=== PATIENT | female | born 1960 | race Caucasian/White ===

== ENCOUNTER 2024-06-03 07:47 | Day surgery (SDC) | payer MEDICARE, OTHER ==
[~2024-06-03] VITALS: Ht 154.9 cm; Wt 90.7 kg
[~2024-06-03 07:47] MED LIST: ATEN50TA2 PO; EZET10TA58 PO; HYDR-3490 PO; LOSA50TA28 PO; METF-838 PO; MIDAZOLAM INJ 2MG/2ML VIAL As Ordered ONE; PHENYLEPHRINE 10% OPHTH SOL 5ML OS PRN; SIMV20TA22 PO; THERTAB52 PO; fentaNYL 100 MCG/2 ML INJECTION As Ordered ONE
[2024-06-03] MEDS: PHENYLEPHRINE 2.5% OPHTH SOL 2ML OS SCH (08:17)
[2024-06-03] MEDS: LIDOCAINE 3.5 % 1ML OPHTH TOPICAL GEL OU ONE (08:17)
[2024-06-03] MEDS: ATROPINE SULFATE 1% OPHTH SOLN 2ML BTL OS SCH (08:17)
[2024-06-03] MEDS: OFLOXACIN 0.3 % (OCUFLOX) OPTH SOL 5ML OS ONE (08:17)
[2024-06-03] MEDS: TROPICAMIDE 1% OPHTH SOLN 15ML OS SCH (08:18)
[2024-06-03] MEDS ORDERED: GLUCOSE 4 GM CHEW PO PRN (08:40)
[2024-06-03] MEDS ORDERED: GLUCAGON INJ 1MG VIAL SC PRN (08:40)
[2024-06-03] MEDS ORDERED: DEXTROSE 50% 50ML SYRINGE IV PRN (08:40)
[2024-06-03] MEDS: LIDOCAINE 1% SDV 5ML VIAL As Ordered ONE (09:27)
[2024-06-03] MEDS: BSS IRRIG/VANCO(10MG)/TOBRA(5MG)/EPINEPH(1:1000-0.5CC)500ML BAG-ORONLY As Ordered ONE (09:27)
[2024-06-03] MEDS: CEFUROXIME 1MG/0.1ML INTRACAMERAL INJ As Ordered ONE (09:27)
[2024-06-03] MEDS: INSULIN LISPRO (NovoLOG) PER UNIT SC PRN ×2 (09:33→10:05)
[2024-06-03 09:40] VITALS: BP 180/83; TEMP 96.5; O2SAT 93
[2024-06-11] MEDS ORDERED: METF10004 PO (12:02)
== END 2024-06-03 10:41 | disposition home or self-care (01) ==
LOC: M SDC 07:47
PROVIDERS: ATTEND Ophthalmology
DX: H25.12 Age-related nuclear cataract, left eye (principal); I10 Essential (primary) hypertension; E78.5 Hyperlipidemia, unspecified; E11.9 Type 2 diabetes mellitus without complications; Z79.899 Other long term (current) drug therapy
CPT/HCPCS: 66984; 92015; J0697; J1815; J2250; J3010; V2632

== ENCOUNTER 2024-06-17 08:24 | Day surgery (SDC) | payer MEDICARE, OTHER ==
[~2024-06-17] VITALS: Ht 154.9 cm; Wt 87.6 kg
[~2024-06-17 08:24] MED LIST changes: +METF10004 PO; -MIDAZOLAM INJ 2MG/2ML VIAL As Ordered ONE; +PHENYLEPHRINE 10% OPHTH SOL 5ML OD PRN; -PHENYLEPHRINE 10% OPHTH SOL 5ML OS PRN
[2024-06-17] MEDS: OFLOXACIN 0.3 % (OCUFLOX) OPTH SOL 5ML OD ONE (08:50)
[2024-06-17] MEDS: PHENYLEPHRINE 2.5% OPHTH SOL 2ML OD SCH (09:02)
[2024-06-17] MEDS: ATROPINE SULFATE 1% OPHTH SOLN 2ML BTL OD SCH (09:02)
[2024-06-17] MEDS: LIDOCAINE 3.5 % 1ML OPHTH TOPICAL GEL OU ONE (09:02)
[2024-06-17] MEDS: TROPICAMIDE 1% OPHTH SOLN 15ML OD SCH (09:02)
[2024-06-17] MEDS: CEFUROXIME 1MG/0.1ML INTRACAMERAL INJ As Ordered ONE (09:26)
[2024-06-17] MEDS: LIDOCAINE 1% SDV 5ML VIAL As Ordered ONE (09:26)
[2024-06-17] MEDS: BSS IRRIG/VANCO(10MG)/TOBRA(5MG)/EPINEPH(1:1000-0.5CC)500ML BAG-ORONLY As Ordered ONE (09:27)
[2024-06-17 09:39] VITALS: BP 181/86; TEMP 96.6; O2SAT 94
== END 2024-06-17 10:08 | disposition home or self-care (01) ==
LOC: M SDC 08:24
PROVIDERS: ATTEND Ophthalmology
DX: H25.11 Age-related nuclear cataract, right eye (principal); I10 Essential (primary) hypertension; E11.9 Type 2 diabetes mellitus without complications; E78.5 Hyperlipidemia, unspecified; J30.2 Other seasonal allergic rhinitis; Z79.84 Long term (current) use of oral hypoglycemic drugs; Z79.899 Other long term (current) drug therapy
CPT/HCPCS: 66984; 92015; J0697; J3010; V2632

== ENCOUNTER 2024-09-02 09:32 | Inpatient (IN) | payer MEDICARE, OTHER ==
[~2024-09-02] VITALS: Ht 157.5 cm; Wt 56.3 kg
[2024-09-02] VITALS (44 sets, daily range): BP systolic 77–142; BP diastolic 38–82; TEMP 95.7–99.1; O2SAT 84–100
[~2024-09-02 09:32] MED LIST changes: -PHENYLEPHRINE 10% OPHTH SOL 5ML OD PRN; -fentaNYL 100 MCG/2 ML INJECTION As Ordered ONE
[2024-09-02] MEDS: NS (Normal Saline) 0.9% 1,000 ML IV ONE ×3 (10:09→12:04)
[2024-09-02 10:15] LABS: VENOUS BASE EXCESS -13.6 (-2.0-2.0); VENOUS HCO3 13.4 MMOL/L (23.0-27.0); VENOUS O2 SATURATION 66.6 % (60.0-80.0); VENOUS PARTIAL PRESSURE CO2 35.1 mmHg (38.0-50.0); VENOUS PARTIAL PRESSURE O2 39.4 mmHg (30.0-50.0); VENOUS PH 7.199 UNITS (7.330-7.430); VENOUS STANDARD HCO3 13.6 MMOL/L; VENOUS TOTAL CO2 14.5 MMOL/L (24.0-28.0)
[2024-09-02 10:27] LABS: BASO % 0.2 % (0.0-1.0); HEMATOCRIT 44.9 % (36.0-47.0); HEMOGLOBIN 14.6 g/dl (12.0-15.5); LYMPH # 0.6 10^3/uL (1.5-5.0); LYMPH % 2.8 % (24.0-44.0); MEAN CORPUSCULAR HEMOGLOBIN 28.2 pg (27.0-33.0); MEAN CORPUSCULAR HGB CONC 32.5 g/dl (32.0-36.5); MEAN CORPUSCULAR VOLUME 86.7 fl (80.0-96.0); MONO # 0.7 10^3/uL (0.0-0.8); MONO % 3.7 % (2.0-8.0); NEUTROPHILS # 18.1 10^3/uL (1.5-8.5); NEUTROPHILS % 92.3 % (36.0-66.0); PLATELET COUNT, AUTOMATED 386 10^3/uL (150-450); RED BLOOD COUNT 5.18 10^6/uL (4.00-5.40); WHITE BLOOD COUNT 19.6 10^3/uL (4.0-10.0)
[2024-09-02 10:46] LABS: ERYTHROCYTE SEDIMENTATION RATE 56 mm/hr (0-30)
[2024-09-02] MEDS: HumuLIN R (REGULAR) INSULIN (NovoLIN R) **100U/ML** PER UNIT IV ONE (10:53)
[2024-09-02] MEDS: INSULIN REGULAR IN 0.9 % NACL 100 UNIT in IV 1 EA IV SCH ×2 (10:54→21:56)
[2024-09-02 10:58] LABS: C REACTIVE PROTEIN QUANTITATIV 9.97 MG/DL (<1.0)
[2024-09-02 10:59] LABS: ACETONE/KETONE 2.67 MMOL/L (0.02-0.27)
[2024-09-02 11:09] LABS: CALCIUM LEVEL 8.9 MG/DL (8.3-10.6); CREATININE FOR GFR 3.24 MG/DL (0.55-1.30); GLOMERULAR FILTRATION RATE 15.3 (>45); POTASSIUM SERUM 6.9 MMOL/L (3.5-5.1)
[2024-09-02] MEDS: CALCIUM GLUCONATE 1,000 MG in DEXTROSE 5% (D5W) MINI-BAG PLU 100 ML IV ONE (11:26)
[2024-09-02] MEDS: cefTRIAXone SOD 2 GM in DEXTROSE 5% (D5W) ADV/MINI-BAG 50 ML IV ONE (11:27)
[2024-09-02 11:50] LABS: HEMOGLOBIN A1c 10.9 % (4.0-6.0)
[2024-09-02] MEDS: NS 500 ML IV ONE (11:55)
[2024-09-02 12:02] LABS: KETONE, URINE AUTO RFX TRACE mg/dL (NEGATIVE); MUCUS, URINE RFX LARGE (NEGATIVE); NITRITE, URINE AUTO RFX NEGATIVE (NEGATIVE)
[2024-09-02] MEDS: VANCOMYCIN/WATER FOR INJ (PEG) 1,250 MG in IV 1 EA IV ONE (12:08)
[2024-09-02 12:13] LABS: LEUKOCYTE ESTERASE UR AUTO RFX 3+ (NEGATIVE)
[2024-09-02] MEDS ORDERED: HOME MED LIST COMPLETE! XX SCH (13:00)
[2024-09-02] MEDS: INSULIN IV RATE CHANGE DOCUMENTATION ML/HR XX SCH (14:26)
[2024-09-02] MEDS: LR 1,000 ML IV SCH (14:27)
[2024-09-02] MEDS: PANTOPRAZOLE 40MG VIAL IV SCH (14:27)
[2024-09-02] MEDS ORDERED: VANCOMYCIN INTERMITTENT/PULSE DOSING BY CLINICAL PHARMACIST PER DOSING PROTOCOL XX SCH (14:35)
[2024-09-02 14:43] LABS: BASO % 0.1 % (0.0-1.0); HEMATOCRIT 39.2 % (36.0-47.0); LYMPH # 0.5 10^3/uL (1.5-5.0); LYMPH % 2.8 % (24.0-44.0); MEAN CORPUSCULAR HEMOGLOBIN 28.3 pg (27.0-33.0); MEAN CORPUSCULAR HGB CONC 33.2 g/dl (32.0-36.5); MEAN CORPUSCULAR VOLUME 85.2 fl (80.0-96.0); MONO # 0.1 10^3/uL (0.0-0.8); MONO % 0.7 % (2.0-8.0); NEUTROPHILS # 16.6 10^3/uL (1.5-8.5); NEUTROPHILS % 95.4 % (36.0-66.0); PLATELET COUNT, AUTOMATED 327 10^3/uL (150-450); WHITE BLOOD COUNT 17.4 10^3/uL (4.0-10.0)
[2024-09-02 15:25] LABS: ALBUMIN 1.6 G/DL (3.2-5.2); ALKALINE PHOSPHATASE 174 U/L (35-104); ALT/SGPT 20 U/L (7.0-40); AST/SGOT 14 U/L (<34); BILIRUBIN,TOTAL < 0.2 MG/DL (0.3-1.2); BLOOD UREA NITROGEN 145 MG/DL (9-23); CARBON DIOXIDE LEVEL 13 MMOL/L (20-31); CHLORIDE LEVEL 103 MMOL/L (98-107); CREATININE FOR GFR 3.01 MG/DL (0.55-1.30); GLOMERULAR FILTRATION RATE 16.6 (>45); GLUCOSE, FASTING 503 MG/DL (74-106); MAGNESIUM LEVEL 1.8 MG/DL (1.8-2.4); PHOSPHORUS LEVEL 7.6 MG/DL (2.4-5.1); POTASSIUM SERUM 5.4 MMOL/L (3.5-5.1); SODIUM LEVEL 132 MMOL/L (136-145)
[2024-09-02] MEDS: LR 1,000 ML IV ONE ×2 (15:48→17:37)
[2024-09-02] MEDS: MORPHINE 2 MG/ML 1ML VIAL IV PRN (16:56)
[2024-09-02] MEDS: NOREPINEPHRINE 4MG IN D5 250ML 4 MG in IV 1 EA IV SCH (17:19)
[2024-09-02 18:54] LABS: PROCALCITONIN 8.54 ng/ml
[2024-09-02] MEDS: D5W/0.9% SODIUM CHLORIDE 1,000 ML IV SCH (19:03)
[2024-09-02] MEDS ORDERED: MIDAZOLAM INJ 2MG/2ML VIAL As Ordered ONE (20:16)
[2024-09-02] MEDS ORDERED: propofoL 200 MG/20 ML VIAL As Ordered ONE (20:17)
[2024-09-02] MEDS ORDERED: KETAMINE HCL 200MG/20ML VIAL As Ordered ONE (20:19)
[2024-09-02 20:21] LABS: VENOUS BASE EXCESS -12.8 (-2.0-2.0); VENOUS HCO3 13.9 MMOL/L (23.0-27.0); VENOUS O2 SATURATION 90.7 % (60.0-80.0); VENOUS PARTIAL PRESSURE CO2 34.6 mmHg (38.0-50.0); VENOUS PARTIAL PRESSURE O2 65.1 mmHg (30.0-50.0); VENOUS PH 7.221 UNITS (7.330-7.430); VENOUS STANDARD HCO3 14.6 MMOL/L; VENOUS TOTAL CO2 14.9 MMOL/L (24.0-28.0)
[2024-09-02 20:55] LABS: CALCIUM LEVEL 8.1 MG/DL (8.3-10.6); CREATININE FOR GFR 3.02 MG/DL (0.55-1.30); GLOMERULAR FILTRATION RATE 16.5 (>45); POTASSIUM SERUM 5.3 MMOL/L (3.5-5.1)
[2024-09-02] MEDS: HEPARIN SOD (PORCINE) 5000UNITS/ML 1ML VIAL/SYRINGE SC SCH (21:58)
[2024-09-03] VITALS (94 sets, daily range): BP systolic 85–141; BP diastolic 46–71; TEMP 96.4–100.2; O2SAT 94–100
[2024-09-03] MEDS: KETAMINE HCL 200MG/20ML VIAL IV ONE
[2024-09-03] MEDS: propofoL 200 MG/20 ML VIAL IV ONE
[2024-09-03] MEDS: MIDAZOLAM INJ 2MG/2ML VIAL IV ONE
[2024-09-03 03:51] LABS: VENOUS BASE EXCESS -11.1 (-2.0-2.0); VENOUS HCO3 14.6 MMOL/L (23.0-27.0); VENOUS O2 SATURATION 98.9 % (60.0-80.0); VENOUS PARTIAL PRESSURE CO2 32.8 mmHg (38.0-50.0); VENOUS PARTIAL PRESSURE O2 141.2 mmHg (30.0-50.0); VENOUS PH 7.267 UNITS (7.330-7.430); VENOUS STANDARD HCO3 15.9 MMOL/L; VENOUS TOTAL CO2 15.6 MMOL/L (24.0-28.0)
[2024-09-03 04:18] LABS: VANCOMYCIN RANDOM 17.1 UG/ML
[2024-09-03 04:19] LABS: CALCIUM LEVEL 7.6 MG/DL (8.3-10.6); CREATININE FOR GFR 3.09 MG/DL (0.55-1.30); GLOMERULAR FILTRATION RATE 16.1 (>45)
[2024-09-03] MEDS: SOD POLYSTYRENE SULFONATE SUSP 15GM 60ML UD PO ONE (06:45)
[2024-09-03] MEDS: DEXTROSE 50% 50ML SYRINGE IV STA (06:54)
[2024-09-03] MEDS: CALCIUM GLUCONATE 1,000 MG in DEXTROSE 5% (D5W) MINI-BAG PLU 100 ML IV ONE (06:54)
[2024-09-03] MEDS: HumuLIN R (REGULAR) INSULIN (NovoLIN R) **100U/ML** PER UNIT IV STA (06:54)
[2024-09-03] MEDS ORDERED: VANCOMYCIN 1,000 MG/200 ML IV BAG *LOAD IV ONE (08:00)
[2024-09-03 09:34] LABS: CREATININE FOR GFR 3.2 MG/DL (0.55-1.30); GLOMERULAR FILTRATION RATE 15.5 (>45); PHOSPHORUS LEVEL 5.5 MG/DL (2.4-5.1)
[2024-09-03] MEDS: LEVEMIR (INSULIN DETEMIR) 1 UNITS/0.01ML SC SCH (12:25)
[2024-09-03] MEDS: VANCOMYCIN HCL 500 MG in DEXTROSE 5% (D5W) MINI-BAG PLU 100 ML IV ONE (12:26)
[2024-09-03] MEDS ORDERED: SODIUM CHLORIDE 0.9% 1000 ML CRRT SCH (13:10)
[2024-09-03] MEDS ORDERED: HEPARIN 1,000UNITS/ML 10ML VIAL (FOR RADIOLOGY & DIALYSIS ONLY) IV PRN (13:20)
[2024-09-03] MEDS ORDERED: SODIUM CHLORIDE 0.9% INJ 10 ML SYR IV PRN (13:20)
[2024-09-03] MEDS: cefTRIAXone SOD 2 GM in DEXTROSE 5% (D5W) ADV/MINI-BAG 50 ML IV SCH (13:31)
[2024-09-03 15:04] LABS: IONIZED CALCIUM 4.4 MG/DL (4.5-5.3)
[2024-09-03 15:07] LABS: HEMATOCRIT 36.8 % (36.0-47.0); HEMOGLOBIN 12.4 g/dl (12.0-15.5); MEAN CORPUSCULAR HEMOGLOBIN 28.5 pg (27.0-33.0); MEAN CORPUSCULAR HGB CONC 33.7 g/dl (32.0-36.5); MEAN CORPUSCULAR VOLUME 84.6 fl (80.0-96.0); PLATELET COUNT, AUTOMATED 251 10^3/uL (150-450); RED BLOOD COUNT 4.35 10^6/uL (4.00-5.40); WHITE BLOOD COUNT 21.2 10^3/uL (4.0-10.0)
[2024-09-03 15:21] LABS: INR 1.27; PARTIAL THROMBOPLASTIN TIME 25.4 SECONDS (24.8-34.2); PROTHROMBIN TIME 16.2 SECONDS (12.5-14.5)
[2024-09-03 15:29] LABS: HEPATITIS B SURFACE ANTIBODY NEGATIVE (POSITIVE)
[2024-09-03 15:37] LABS: MAGNESIUM LEVEL 1.7 MG/DL (1.8-2.4)
[2024-09-03 15:40] LABS: HEPATITIS B SURFACE ANTIGEN NEGATIVE (NEGATIVE)
[2024-09-03 15:44] LABS: CALCIUM LEVEL 7.5 MG/DL (8.3-10.6); CREATININE FOR GFR 3.33 MG/DL (0.55-1.30); GLOMERULAR FILTRATION RATE 14.8 (>45); POTASSIUM SERUM 4.9 MMOL/L (3.5-5.1)
[2024-09-03 16:02] LABS: HEPATITIS B CORE ANTIBODY IGM NEGATIVE (NEGATIVE); HEPATITIS C VIRUS ABY INDEX 0.02 INDEX (<0.8)
[2024-09-03] MEDS ORDERED: GLUCOSE 4 GM CHEW PO PRN (16:20)
[2024-09-03] MEDS ORDERED: DEXTROSE 50% 50ML SYRINGE IV PRN (16:20)
[2024-09-03] MEDS ORDERED: GLUCAGON INJ 1MG VIAL SC PRN (16:20)
[2024-09-03] MEDS: INSULIN LISPRO (NovoLOG) PER UNIT SC SCH (17:51)
[2024-09-03] MEDS: VASOPRESSIN IN 0.9 % NACL 20 UNIT in IV 1 EA IV SCH (19:26)
[2024-09-03 19:50] LABS: IONIZED CALCIUM 4.6 MG/DL (4.5-5.3)
[2024-09-03 20:13] LABS: CREATININE FOR GFR 2.43 MG/DL (0.55-1.30); GLOMERULAR FILTRATION RATE 21.3 (>45); MAGNESIUM LEVEL 1.7 MG/DL (1.8-2.4); PHOSPHORUS LEVEL 4.7 MG/DL (2.4-5.1); POTASSIUM SERUM 4.3 MMOL/L (3.5-5.1)
[2024-09-03] MEDS: AMIODARONE HCL 150 MG in IV 1 EA IV ONE (20:22)
[2024-09-03] MEDS: AMIODARONE HCL 360 MG in IV 1 EA IV SCH (20:45)
[2024-09-03] MEDS: CALCIUM GLUCONATE 1,000 MG, VIAL MATE ADAPTER 1 EACH in NS 100 ML IV ONE (21:41)
[2024-09-03] MEDS: MAG SULF 1GM/100ML (MAG RUN) 1 GM in IV 1 EA IV ONE (21:42)
[2024-09-03] MEDS: HEPARIN 1000 UNIT/ML *20ML* SYRINGE CRRT CRRT ONE (22:30)
[2024-09-03] MEDS: HEPARIN 1000 UNIT/ML CRRT 20,000 UNITS in IV 1 EA CRRT SCH (22:30)
[2024-09-03] MEDS: VANCOMYCIN HCL 500 MG in DEXTROSE 5% (D5W) MINI-BAG PLU 100 ML IV SCH (23:58)
[2024-09-04] VITALS (96 sets, daily range): BP systolic 76–170; BP diastolic 44–95; TEMP 96.1–99; O2SAT 73–99
[2024-09-04] MEDS: AMIODARONE HCL 360 MG in IV 1 EA IV SCH (02:24)
[2024-09-04 04:50] LABS: IONIZED CALCIUM 4.6 MG/DL (4.5-5.3)
[2024-09-04 04:56] LABS: HEMATOCRIT 35.9 % (36.0-47.0); HEMOGLOBIN 12.4 g/dl (12.0-15.5); MEAN CORPUSCULAR HEMOGLOBIN 28.5 pg (27.0-33.0); MEAN CORPUSCULAR HGB CONC 34.5 g/dl (32.0-36.5); MEAN CORPUSCULAR VOLUME 82.5 fl (80.0-96.0); PLATELET COUNT, AUTOMATED 246 10^3/uL (150-450); RED BLOOD COUNT 4.35 10^6/uL (4.00-5.40); WHITE BLOOD COUNT 21.6 10^3/uL (4.0-10.0)
[2024-09-04 05:21] LABS: CALCIUM LEVEL 8.3 MG/DL (8.3-10.6); CREATININE FOR GFR 1.81 MG/DL (0.55-1.30); GLOMERULAR FILTRATION RATE 29.9 (>45); MAGNESIUM LEVEL 1.9 MG/DL (1.8-2.4)
[2024-09-04] MEDS: CALCIUM GLUCONATE 1,000 MG, VIAL MATE ADAPTER 1 EACH in NS 100 ML IV ONE (06:18)
[2024-09-04] MEDS: MAG SULF 1GM/100ML (MAG RUN) 1 GM in IV 1 EA IV ONE (06:25)
[2024-09-04] MEDS: fentaNYL 100 MCG/2 ML INJECTION IV PRN (08:24)
[2024-09-04] MEDS: VANCOMYCIN HCL 500 MG in DEXTROSE 5% (D5W) MINI-BAG PLU 100 ML IV SCH (08:28)
[2024-09-04] MEDS: AMIODARONE HCL 150 MG in IV 1 EA IV ONE ×2 (09:18→09:32)
[2024-09-04] MEDS ORDERED: HEPARIN 1000 UNIT/ML CRRT 20,000 UNITS in IV 1 EA CRRT SCH (11:10)
[2024-09-04 11:14] LABS: IONIZED CALCIUM 4.7 MG/DL (4.5-5.3)
[2024-09-04 11:19] LABS: HEMATOCRIT 33.7 % (36.0-47.0); HEMOGLOBIN 11.9 g/dl (12.0-15.5); MEAN CORPUSCULAR HGB CONC 35.3 g/dl (32.0-36.5); PLATELET COUNT, AUTOMATED 187 10^3/uL (150-450); RED BLOOD COUNT 4.11 10^6/uL (4.00-5.40); WHITE BLOOD COUNT 17.1 10^3/uL (4.0-10.0)
[2024-09-04 11:48] LABS: CALCIUM LEVEL 8.3 MG/DL (8.3-10.6); CREATININE FOR GFR 1.39 MG/DL (0.55-1.30); GLOMERULAR FILTRATION RATE 40.5 (>45); PHOSPHORUS LEVEL 3.5 MG/DL (2.4-5.1); POTASSIUM SERUM 3.5 MMOL/L (3.5-5.1)
[2024-09-04] MEDS ORDERED: ISOVUE-370 76% 100ML VIAL As Ordered ONE (12:14)
[2024-09-04] MEDS: KCL 20MEQ IN 100ML SWI (KRUN) 20 MEQ in IV 1 EA IV SCH (13:15)
[2024-09-04 13:45] LABS: MAGNESIUM LEVEL 2.1 MG/DL (1.8-2.4)
[2024-09-04 18:16] LABS: IONIZED CALCIUM 4.7 MG/DL (4.5-5.3)
[2024-09-04 18:53] LABS: CALCIUM LEVEL 8.2 MG/DL (8.3-10.6); CREATININE FOR GFR 1.16 MG/DL (0.55-1.30); GLOMERULAR FILTRATION RATE 49.9 (>45); PHOSPHORUS LEVEL 3.9 MG/DL (2.4-5.1); POTASSIUM SERUM 4.1 MMOL/L (3.5-5.1)
[2024-09-04] MEDS: ONDANSETRON 4MG 2ML VIAL IV PRN (19:04)
[2024-09-04 23:49] LABS: IONIZED CALCIUM 4.7 MG/DL (4.5-5.3)
[2024-09-05] VITALS (102 sets, daily range): BP systolic 66–198; BP diastolic 43–145; TEMP 96.4–98.5; O2SAT 94–100
[2024-09-05] MEDS ORDERED: AMIODARONE HCL 360 MG in IV 1 EA IV SCH (00:15)
[2024-09-05 00:17] LABS: BLOOD UREA NITROGEN 32 MG/DL (9-23); CALCIUM LEVEL 8.2 MG/DL (8.3-10.6); CARBON DIOXIDE LEVEL 22 MMOL/L (20-31); CHLORIDE LEVEL 106 MMOL/L (98-107); CREATININE FOR GFR 0.96 MG/DL (0.55-1.30); GLOMERULAR FILTRATION RATE > 60.0 (>45); GLUCOSE, FASTING 142 MG/DL (74-106); PHOSPHORUS LEVEL 3.6 MG/DL (2.4-5.1); POTASSIUM SERUM 3.9 MMOL/L (3.5-5.1); SODIUM LEVEL 139 MMOL/L (136-145)
[2024-09-05] MEDS: AMIODARONE HCL 360 MG in IV 1 EA IV SCH (01:07)
[2024-09-05] MEDS: KCL 20MEQ IN 100ML SWI (KRUN) 20 MEQ in IV 1 EA IV ONE ×2 (01:08→14:51)
[2024-09-05 05:43] LABS: IONIZED CALCIUM 4.8 MG/DL (4.5-5.3)
[2024-09-05 05:54] LABS: HEMATOCRIT 31.2 % (36.0-47.0); HEMOGLOBIN 10.6 g/dl (12.0-15.5); MEAN CORPUSCULAR HEMOGLOBIN 28.4 pg (27.0-33.0); MEAN CORPUSCULAR VOLUME 83.6 fl (80.0-96.0); PLATELET COUNT, AUTOMATED 156 10^3/uL (150-450); RED BLOOD COUNT 3.73 10^6/uL (4.00-5.40)
[2024-09-05 06:21] LABS: BLOOD UREA NITROGEN 26 MG/DL (9-23); CALCIUM LEVEL 8.4 MG/DL (8.3-10.6); CARBON DIOXIDE LEVEL 24 MMOL/L (20-31); CHLORIDE LEVEL 105 MMOL/L (98-107); GLOMERULAR FILTRATION RATE > 60.0 (>45); GLUCOSE, FASTING 115 MG/DL (74-106); PHOSPHORUS LEVEL 3.5 MG/DL (2.4-5.1); SODIUM LEVEL 138 MMOL/L (136-145)
[2024-09-05] MEDS: atenoloL 50 MG TAB PO SCH (09:31)
[2024-09-05] MEDS ORDERED: SODIUM CHLORIDE 0.9% INJ 10 ML SYR CRRT PRN ×2 (10:10)
[2024-09-05] MEDS ORDERED: HEPARIN 1,000UNITS/ML 10ML VIAL (FOR RADIOLOGY & DIALYSIS ONLY) CRRT PRN ×2 (10:10)
[2024-09-05] MEDS ORDERED: HEPARIN 1000 UNIT/ML CRRT 20,000 UNITS in IV 1 EA CRRT SCH (10:10)
[2024-09-05 12:06] LABS: IONIZED CALCIUM 4.8 MG/DL (4.5-5.3)
[2024-09-05 12:29] LABS: HEMATOCRIT 31.2 % (36.0-47.0); HEMOGLOBIN 10.6 g/dl (12.0-15.5); MEAN CORPUSCULAR HEMOGLOBIN 28.6 pg (27.0-33.0); MEAN CORPUSCULAR VOLUME 84.1 fl (80.0-96.0); PLATELET COUNT, AUTOMATED 139 10^3/uL (150-450); RED BLOOD COUNT 3.71 10^6/uL (4.00-5.40); WHITE BLOOD COUNT 11.9 10^3/uL (4.0-10.0)
[2024-09-05 12:46] LABS: BLOOD UREA NITROGEN 18 MG/DL (9-23); CALCIUM LEVEL 8.3 MG/DL (8.3-10.6); CARBON DIOXIDE LEVEL 24 MMOL/L (20-31); CHLORIDE LEVEL 108 MMOL/L (98-107); CREATININE FOR GFR 0.79 MG/DL (0.55-1.30); GLOMERULAR FILTRATION RATE > 60.0 (>45); GLUCOSE, FASTING 141 MG/DL (74-106); PHOSPHORUS LEVEL 3.2 MG/DL (2.4-5.1); POTASSIUM SERUM 3.8 MMOL/L (3.5-5.1); SODIUM LEVEL 140 MMOL/L (136-145)
[2024-09-05] MEDS: ACETAMINOPHEN *IV* 1,000 MG in IV 1 EA IV PRN (15:02)
[2024-09-05] MEDS: fentaNYL 100 MCG/2 ML INJECTION IV PRN (15:54)
[2024-09-05 17:56] LABS: IONIZED CALCIUM 4.7 MG/DL (4.5-5.3)
[2024-09-05 18:05] LABS: HEMOGLOBIN 10.6 g/dl (12.0-15.5); MEAN CORPUSCULAR HEMOGLOBIN 28.7 pg (27.0-33.0); MEAN CORPUSCULAR HGB CONC 34.2 g/dl (32.0-36.5); PLATELET COUNT, AUTOMATED 145 10^3/uL (150-450); RED BLOOD COUNT 3.69 10^6/uL (4.00-5.40); WHITE BLOOD COUNT 12.1 10^3/uL (4.0-10.0)
[2024-09-05 18:26] LABS: BLOOD UREA NITROGEN 17 MG/DL (9-23); CALCIUM LEVEL 8.3 MG/DL (8.3-10.6); CARBON DIOXIDE LEVEL 24 MMOL/L (20-31); CHLORIDE LEVEL 107 MMOL/L (98-107); CREATININE FOR GFR 0.78 MG/DL (0.55-1.30); GLOMERULAR FILTRATION RATE > 60.0 (>45); GLUCOSE, FASTING 144 MG/DL (74-106); PHOSPHORUS LEVEL 3.3 MG/DL (2.4-5.1); POTASSIUM SERUM 4.1 MMOL/L (3.5-5.1); SODIUM LEVEL 140 MMOL/L (136-145)
[2024-09-05] MEDS: INSULIN LISPRO (NovoLOG) PER UNIT SC SCH ×2 (18:53→20:51)
[2024-09-05] MEDS: VANCOMYCIN HCL 750 MG, VIAL MATE ADAPTER 1 EACH in NS 250 ML IV SCH (20:19)
[2024-09-05] MEDS: METOPROLOL TART 50 MG TAB PO SCH (20:57)
[2024-09-05 23:51] LABS: IONIZED CALCIUM 4.7 MG/DL (4.5-5.3)
[2024-09-06] VITALS (75 sets, daily range): BP systolic 69–138; BP diastolic 48–88; TEMP 95.7–98.6; O2SAT 84–100
[2024-09-06 00:20] LABS: BLOOD UREA NITROGEN 15 MG/DL (9-23); CALCIUM LEVEL 8.1 MG/DL (8.3-10.6); CARBON DIOXIDE LEVEL 23 MMOL/L (20-31); CHLORIDE LEVEL 108 MMOL/L (98-107); CREATININE FOR GFR 0.67 MG/DL (0.55-1.30); GLOMERULAR FILTRATION RATE > 60.0 (>45); GLUCOSE, FASTING 145 MG/DL (74-106); PHOSPHORUS LEVEL 3.1 MG/DL (2.4-5.1); POTASSIUM SERUM 3.7 MMOL/L (3.5-5.1); SODIUM LEVEL 139 MMOL/L (136-145)
[2024-09-06 00:23] LABS: HEMATOCRIT 31.7 % (36.0-47.0); HEMOGLOBIN 10.5 g/dl (12.0-15.5); MEAN CORPUSCULAR HEMOGLOBIN 28.1 pg (27.0-33.0); MEAN CORPUSCULAR HGB CONC 33.1 g/dl (32.0-36.5); MEAN CORPUSCULAR VOLUME 84.8 fl (80.0-96.0); PLATELET COUNT, AUTOMATED 162 10^3/uL (150-450); RED BLOOD COUNT 3.74 10^6/uL (4.00-5.40); WHITE BLOOD COUNT 12.8 10^3/uL (4.0-10.0)
[2024-09-06] MEDS: KCL 20MEQ IN 100ML SWI (KRUN) 20 MEQ in IV 1 EA IV ONE ×2 (01:18→09:41)
[2024-09-06 06:22] LABS: IONIZED CALCIUM 4.7 MG/DL (4.5-5.3)
[2024-09-06 07:41] LABS: HEMATOCRIT 29.2 % (36.0-47.0); HEMOGLOBIN 9.7 g/dl (12.0-15.5); MEAN CORPUSCULAR HEMOGLOBIN 28.3 pg (27.0-33.0); MEAN CORPUSCULAR HGB CONC 33.2 g/dl (32.0-36.5); MEAN CORPUSCULAR VOLUME 85.1 fl (80.0-96.0); PLATELET COUNT, AUTOMATED 146 10^3/uL (150-450); RED BLOOD COUNT 3.43 10^6/uL (4.00-5.40); WHITE BLOOD COUNT 10.5 10^3/uL (4.0-10.0)
[2024-09-06 07:44] LABS: BLOOD UREA NITROGEN 13 MG/DL (9-23); CALCIUM LEVEL 8.6 MG/DL (8.3-10.6); CARBON DIOXIDE LEVEL 23 MMOL/L (20-31); CHLORIDE LEVEL 108 MMOL/L (98-107); CREATININE FOR GFR 0.63 MG/DL (0.55-1.30); GLOMERULAR FILTRATION RATE > 60.0 (>45); GLUCOSE, FASTING 111 MG/DL (74-106); MAGNESIUM LEVEL 1.9 MG/DL (1.8-2.4); POTASSIUM SERUM 3.8 MMOL/L (3.5-5.1); SODIUM LEVEL 139 MMOL/L (136-145)
[2024-09-06 08:11] LABS: VANCOMYCIN LEVEL TROUGH 12.1 UG/ML (10.0-20.0)
[2024-09-06] MEDS: MAG SULF 1GM/100ML (MAG RUN) 1 GM in IV 1 EA IV ONE (08:25)
[2024-09-06] MEDS: METOPROLOL TARTRATE 100MG TAB PO SCH (08:38)
[2024-09-06] MEDS: FUROSEMIDE 100MG/10ML VIAL IV SCH (12:00)
[2024-09-06] MEDS: MIDODRINE 5 MG TAB PO SCH (12:00)
[2024-09-06 12:30] LABS: IONIZED CALCIUM 4.8 MG/DL (4.5-5.3)
[2024-09-06 12:34] LABS: HEMATOCRIT 30.9 % (36.0-47.0); HEMOGLOBIN 10.3 g/dl (12.0-15.5); MEAN CORPUSCULAR HEMOGLOBIN 28.6 pg (27.0-33.0); MEAN CORPUSCULAR HGB CONC 33.3 g/dl (32.0-36.5); MEAN CORPUSCULAR VOLUME 85.8 fl (80.0-96.0); PLATELET COUNT, AUTOMATED 175 10^3/uL (150-450)
[2024-09-06 13:00] LABS: BLOOD UREA NITROGEN 11 MG/DL (9-23); CALCIUM LEVEL 8.6 MG/DL (8.3-10.6); CARBON DIOXIDE LEVEL 24 MMOL/L (20-31); CHLORIDE LEVEL 106 MMOL/L (98-107); CREATININE FOR GFR 0.59 MG/DL (0.55-1.30); GLOMERULAR FILTRATION RATE > 60.0 (>45); GLUCOSE, FASTING 123 MG/DL (74-106); MAGNESIUM LEVEL 2.1 MG/DL (1.8-2.4); PHOSPHORUS LEVEL 3.2 MG/DL (2.4-5.1); POTASSIUM SERUM 4.1 MMOL/L (3.5-5.1); SODIUM LEVEL 138 MMOL/L (136-145)
[2024-09-06] MEDS: CALCIUM CARBONATE 500 MG CHEW U/D PO SCH (14:28)
[2024-09-06] MEDS: LOPERAMIDE 2 MG CAPLET PO PRN (14:29)
[2024-09-06] MEDS: LIDOCAINE 5% (LIDODERM) PATCH TD ONE (14:30)
[2024-09-06 17:28] LABS: IONIZED CALCIUM 4.8 MG/DL (4.5-5.3)
[2024-09-06 17:33] LABS: HEMATOCRIT 31.3 % (36.0-47.0); HEMOGLOBIN 10.4 g/dl (12.0-15.5); MEAN CORPUSCULAR HEMOGLOBIN 28.6 pg (27.0-33.0); MEAN CORPUSCULAR HGB CONC 33.2 g/dl (32.0-36.5); PLATELET COUNT, AUTOMATED 174 10^3/uL (150-450); RED BLOOD COUNT 3.64 10^6/uL (4.00-5.40); WHITE BLOOD COUNT 14.4 10^3/uL (4.0-10.0)
[2024-09-06 17:58] LABS: BLOOD UREA NITROGEN 11 MG/DL (9-23); CALCIUM LEVEL 8.7 MG/DL (8.3-10.6); CARBON DIOXIDE LEVEL 24 MMOL/L (20-31); CHLORIDE LEVEL 106 MMOL/L (98-107); CREATININE FOR GFR 0.61 MG/DL (0.55-1.30); GLOMERULAR FILTRATION RATE > 60.0 (>45); GLUCOSE, FASTING 99 MG/DL (74-106); POTASSIUM SERUM 3.5 MMOL/L (3.5-5.1); SODIUM LEVEL 139 MMOL/L (136-145)
[2024-09-06] MEDS: KCL 20MEQ IN 100ML SWI (KRUN) 20 MEQ in IV 1 EA IV SCH (18:41)
[2024-09-06] MEDS: dilTIAZem HCL 125 MG in NS 100 ML IV SCH (21:47)
[2024-09-07] VITALS (24 sets, daily range): BP systolic 84–141; BP diastolic 45–90; TEMP 96.4–100; O2SAT 96–100
[2024-09-07 00:35] LABS: IONIZED CALCIUM 4.8 MG/DL (4.5-5.3)
[2024-09-07 00:39] LABS: HEMATOCRIT 31.8 % (36.0-47.0); HEMOGLOBIN 10.4 g/dl (12.0-15.5); MEAN CORPUSCULAR HEMOGLOBIN 28.1 pg (27.0-33.0); MEAN CORPUSCULAR HGB CONC 32.7 g/dl (32.0-36.5); MEAN CORPUSCULAR VOLUME 85.9 fl (80.0-96.0); PLATELET COUNT, AUTOMATED 183 10^3/uL (150-450)
[2024-09-07 01:01] LABS: BLOOD UREA NITROGEN 10 MG/DL (9-23); CALCIUM LEVEL 8.4 MG/DL (8.3-10.6); CARBON DIOXIDE LEVEL 27 MMOL/L (20-31); CHLORIDE LEVEL 107 MMOL/L (98-107); CREATININE FOR GFR 0.69 MG/DL (0.55-1.30); GLOMERULAR FILTRATION RATE > 60.0 (>45); GLUCOSE, FASTING 93 MG/DL (74-106); MAGNESIUM LEVEL 1.9 MG/DL (1.8-2.4); PHOSPHORUS LEVEL 2.5 MG/DL (2.4-5.1); SODIUM LEVEL 139 MMOL/L (136-145)
[2024-09-07] MEDS: MAG SULF 1GM/100ML (MAG RUN) 1 GM in IV 1 EA IV ONE (01:33)
[2024-09-07 05:55] LABS: IONIZED CALCIUM 4.7 MG/DL (4.5-5.3)
[2024-09-07 06:08] LABS: HEMATOCRIT 29.7 % (36.0-47.0); HEMOGLOBIN 9.8 g/dl (12.0-15.5); MEAN CORPUSCULAR HEMOGLOBIN 28.5 pg (27.0-33.0); MEAN CORPUSCULAR VOLUME 86.3 fl (80.0-96.0); PLATELET COUNT, AUTOMATED 149 10^3/uL (150-450); RED BLOOD COUNT 3.44 10^6/uL (4.00-5.40); WHITE BLOOD COUNT 11.3 10^3/uL (4.0-10.0)
[2024-09-07 06:33] LABS: BLOOD UREA NITROGEN 9 MG/DL (9-23); CALCIUM LEVEL 8.5 MG/DL (8.3-10.6); CARBON DIOXIDE LEVEL 27 MMOL/L (20-31); CHLORIDE LEVEL 105 MMOL/L (98-107); CREATININE FOR GFR 0.62 MG/DL (0.55-1.30); GLOMERULAR FILTRATION RATE > 60.0 (>45); GLUCOSE, FASTING 82 MG/DL (74-106); MAGNESIUM LEVEL 2.1 MG/DL (1.8-2.4); PHOSPHORUS LEVEL 2.6 MG/DL (2.4-5.1); POTASSIUM SERUM 3.4 MMOL/L (3.5-5.1); SODIUM LEVEL 140 MMOL/L (136-145)
[2024-09-07] MEDS: KCL 20MEQ IN 100ML SWI (KRUN) 20 MEQ in IV 1 EA IV SCH (06:58)
[2024-09-07] MEDS: HEPARIN 1,000UNITS/ML 10ML VIAL (FOR RADIOLOGY & DIALYSIS ONLY) CRRT PRN ×2 (08:19→08:20)
[2024-09-07] MEDS: SODIUM CHLORIDE 0.9% INJ 10 ML SYR CRRT PRN ×2 (08:20)
[2024-09-07] MEDS: LEVEMIR (INSULIN DETEMIR) 1 UNITS/0.01ML SC SCH (08:36)
[2024-09-07] MEDS: METOPROLOL TART 25 MG TABLET PO SCH (11:51)
[2024-09-07] MEDS: LIDOCAINE 5% (LIDODERM) PATCH TD SCH (12:01)
[2024-09-07] MEDS: NYSTATIN 100,000 UNITS/GM TOPICAL PWD 15GM TOP PRN (16:39)
[2024-09-07] MEDS: cefTRIAXone SOD 2 GM in DEXTROSE 5% (D5W) ADV/MINI-BAG 50 ML IV SCH (16:50)
[2024-09-07] MEDS: METOPROLOL TART 50 MG TAB PO SCH (20:29)
[2024-09-08] VITALS (39 sets, daily range): BP systolic 72–158; BP diastolic 42–89; TEMP 96.9–99; O2SAT 94–100
[2024-09-08 04:38] LABS: HEMATOCRIT 30.4 % (36.0-47.0); MEAN CORPUSCULAR HEMOGLOBIN 28.7 pg (27.0-33.0); MEAN CORPUSCULAR HGB CONC 32.9 g/dl (32.0-36.5); MEAN CORPUSCULAR VOLUME 87.1 fl (80.0-96.0); PLATELET COUNT, AUTOMATED 162 10^3/uL (150-450); RED BLOOD COUNT 3.49 10^6/uL (4.00-5.40); WHITE BLOOD COUNT 12.4 10^3/uL (4.0-10.0)
[2024-09-08 04:44] LABS: IONIZED CALCIUM 4.3 MG/DL (4.5-5.3)
[2024-09-08 05:15] LABS: CALCIUM LEVEL 7.6 MG/DL (8.3-10.6); CREATININE FOR GFR 1.08 MG/DL (0.55-1.30); GLOMERULAR FILTRATION RATE 54.2 (>45); MAGNESIUM LEVEL 1.7 MG/DL (1.8-2.4); PHOSPHORUS LEVEL 3.8 MG/DL (2.4-5.1)
[2024-09-08] MEDS ORDERED: HEPARIN 1,000UNITS/ML 10ML VIAL (FOR RADIOLOGY & DIALYSIS ONLY) IV PRN (06:00)
[2024-09-08] MEDS ORDERED: LIDOCAINE 1% SDV 5ML VIAL SC PRN (06:00)
[2024-09-08] MEDS ORDERED: HEPARIN 1,000UNITS/ML 10ML VIAL (FOR RADIOLOGY & DIALYSIS ONLY) XX SCH (06:00)
[2024-09-08] MEDS ORDERED: SODIUM CHLORIDE 0.9% 1000 ML IV PRN (06:00)
[2024-09-08] MEDS: POTASSIUM CHLORIDE 10% LIQ 20MEQ/15ML UDC PO ONE (06:56)
[2024-09-08] MEDS: MAG SULF 1GM/100ML (MAG RUN) 1 GM in IV 1 EA IV ONE (06:56)
[2024-09-08] MEDS: KCL 10MEQ/100ML SWI (KRUN) 10 MEQ in IV 1 EA IV SCH (07:55)
[2024-09-08] MEDS: PERCOCET 5MG/325MG TAB PO PRN (11:55)
[2024-09-08] MEDS: DIGOXIN 0.25 MG TAB PO ONE (13:38)
[2024-09-08] MEDS: METOPROLOL TART 50 MG TAB PO ONE (13:38)
[2024-09-08] MEDS: DOCUSATE SODIUM 100MG CAPSULE PO SCH (13:38)
[2024-09-08] MEDS: FUROSEMIDE 100MG/10ML VIAL IV SCH (20:29)
[2024-09-08] MEDS: LEVEMIR (INSULIN DETEMIR) 1 UNITS/0.01ML SC SCH (20:29)
[2024-09-08] MEDS: DIGOXIN 0.25 MG TAB PO SCH (20:30)
[2024-09-08] MEDS: SENNA 8.6 MG TAB (SENOKOT) PO SCH (20:32)
[2024-09-08] MEDS: METOPROLOL TARTRATE 100MG TAB PO SCH (20:32)
[2024-09-08] MEDS: KCL 20MEQ IN 100ML SWI (KRUN) 20 MEQ in IV 1 EA IV SCH (21:05)
[2024-09-08] MEDS: MAG SULF 1GM/100ML (MAG RUN) 1 GM in IV 1 EA IV SCH (21:05)
[2024-09-09] VITALS (38 sets, daily range): BP systolic 96–171; BP diastolic 47–90; TEMP 97.2–99.2; O2SAT 85–99
[2024-09-09 05:34] LABS: BASO % 0.1 % (0.0-1.0); EOS # 0.1 10^3/uL (0.0-0.5); HEMATOCRIT 28.1 % (36.0-47.0); HEMOGLOBIN 9.2 g/dl (12.0-15.5); LYMPH # 0.9 10^3/uL (1.5-5.0); LYMPH % 7.7 % (24.0-44.0); MEAN CORPUSCULAR HEMOGLOBIN 28.6 pg (27.0-33.0); MEAN CORPUSCULAR HGB CONC 32.7 g/dl (32.0-36.5); MEAN CORPUSCULAR VOLUME 87.3 fl (80.0-96.0); MONO # 0.5 10^3/uL (0.0-0.8); MONO % 4.5 % (2.0-8.0); NEUTROPHILS # 9.8 10^3/uL (1.5-8.5); NEUTROPHILS % 85.3 % (36.0-66.0); PLATELET COUNT, AUTOMATED 134 10^3/uL (150-450); RED BLOOD COUNT 3.22 10^6/uL (4.00-5.40); WHITE BLOOD COUNT 11.5 10^3/uL (4.0-10.0)
[2024-09-09 06:07] LABS: ALBUMIN 1.6 G/DL (3.2-5.2); ALKALINE PHOSPHATASE 327 U/L (35-104); ALT/SGPT 17 U/L (7.0-40); AST/SGOT 22 U/L (<34); BILIRUBIN,TOTAL 0.2 MG/DL (0.3-1.2); BLOOD UREA NITROGEN 12 MG/DL (9-23); CALCIUM LEVEL 7.3 MG/DL (8.3-10.6); CARBON DIOXIDE LEVEL 30 MMOL/L (20-31); CHLORIDE LEVEL 100 MMOL/L (98-107); CREATININE FOR GFR 0.81 MG/DL (0.55-1.30); GLOMERULAR FILTRATION RATE > 60.0 (>45); GLUCOSE, FASTING 164 MG/DL (74-106); MAGNESIUM LEVEL 1.9 MG/DL (1.8-2.4); PHOSPHORUS LEVEL 2.1 MG/DL (2.4-5.1); POTASSIUM SERUM 3.7 MMOL/L (3.5-5.1); SODIUM LEVEL 136 MMOL/L (136-145); TOTAL PROTEIN 4.7 G/DL (5.7-8.2)
[2024-09-09] MEDS: POTASSIUM CHLORIDE 10MEQ SR TABLET PO SCH (09:00)
[2024-09-09] MEDS: POTASSIUM PHOSPHATE INJ 30 MMOL in D5W 500 ML IV ONE (12:53)
[2024-09-09] MEDS: MIDODRINE 5 MG TAB PO SCH (12:53)
[2024-09-09] MEDS: EZETIMIBE 10MG TABLET (ZETIA) PO SCH (22:47)
[2024-09-10] VITALS (7 sets, daily range): BP systolic 119–144; BP diastolic 58–87; TEMP 96.3–99.7; O2SAT 95–98
[2024-09-10 05:17] LABS: BASO % 0.1 % (0.0-1.0); EOS # 0.1 10^3/uL (0.0-0.5); EOS % 0.5 % (0.0-3.0); HEMATOCRIT 30.3 % (36.0-47.0); HEMOGLOBIN 9.7 g/dl (12.0-15.5); LYMPH # 0.8 10^3/uL (1.5-5.0); LYMPH % 7.4 % (24.0-44.0); MEAN CORPUSCULAR HEMOGLOBIN 28.2 pg (27.0-33.0); MEAN CORPUSCULAR VOLUME 88.1 fl (80.0-96.0); MONO # 0.5 10^3/uL (0.0-0.8); MONO % 4.9 % (2.0-8.0); NEUTROPHILS # 9.1 10^3/uL (1.5-8.5); PLATELET COUNT, AUTOMATED 139 10^3/uL (150-450); RED BLOOD COUNT 3.44 10^6/uL (4.00-5.40); WHITE BLOOD COUNT 10.6 10^3/uL (4.0-10.0)
[2024-09-10 05:45] LABS: DIGOXIN LEVEL 2.2 NG/ML (0.8-2.0)
[2024-09-10 05:53] LABS: ALBUMIN 1.7 G/DL (3.2-5.2); ALKALINE PHOSPHATASE 298 U/L (35-104); ALT/SGPT 16 U/L (7.0-40); AST/SGOT 20 U/L (<34); BILIRUBIN,TOTAL 0.3 MG/DL (0.3-1.2); BLOOD UREA NITROGEN 18 MG/DL (9-23); CALCIUM LEVEL 7.4 MG/DL (8.3-10.6); CARBON DIOXIDE LEVEL 32 MMOL/L (20-31); CHLORIDE LEVEL 100 MMOL/L (98-107); CREATININE FOR GFR 0.83 MG/DL (0.55-1.30); GLOMERULAR FILTRATION RATE > 60.0 (>45); GLUCOSE, FASTING 202 MG/DL (74-106); MAGNESIUM LEVEL 1.6 MG/DL (1.8-2.4); PHOSPHORUS LEVEL 3.6 MG/DL (2.4-5.1); POTASSIUM SERUM 4.3 MMOL/L (3.5-5.1); SODIUM LEVEL 138 MMOL/L (136-145)
[2024-09-10] MEDS ORDERED: SIMVASTATIN 20 MG TAB PO SCH (09:00)
[2024-09-10] MEDS ORDERED: DIGOXIN 0.25 MG TAB PO SCH (09:00)
[2024-09-10] MEDS: MULTIVITAMINS/MINERALS THERAP 1 TAB PO SCH (09:57)
[2024-09-10] MEDS: MAGNESIUM OXIDE 400MG TAB (MAG-OX) PO SCH (09:58)
[2024-09-10] MEDS: ATORVASTATIN 20 MG TAB PO SCH (09:58)
[2024-09-10] MEDS: DIGOXIN 0.125 MG TAB PO SCH (09:59)
[2024-09-10] MEDS: LEVEMIR (INSULIN DETEMIR) 1 UNITS/0.01ML SC SCH (10:11)
[2024-09-10] MEDS: APIXABAN 5 MG TAB (ELIQUIS) PO SCH (12:35)
[2024-09-10] MEDS: oxyCODONE 5MG TAB PO ONE (15:47)
[2024-09-11] VITALS (7 sets, daily range): BP systolic 116–137; BP diastolic 58–69; TEMP 97–99; O2SAT 97–100
[2024-09-11 08:56] LABS: BASO % 0.1 % (0.0-1.0); EOS # 0.1 10^3/uL (0.0-0.5); EOS % 0.4 % (0.0-3.0); HEMOGLOBIN 10.3 g/dl (12.0-15.5); LYMPH # 0.4 10^3/uL (1.5-5.0); LYMPH % 2.6 % (24.0-44.0); MEAN CORPUSCULAR HEMOGLOBIN 28.9 pg (27.0-33.0); MEAN CORPUSCULAR HGB CONC 32.2 g/dl (32.0-36.5); MEAN CORPUSCULAR VOLUME 89.9 fl (80.0-96.0); MONO # 0.2 10^3/uL (0.0-0.8); MONO % 1.7 % (2.0-8.0); NEUTROPHILS % 94.7 % (36.0-66.0); PLATELET COUNT, AUTOMATED 131 10^3/uL (150-450); RED BLOOD COUNT 3.56 10^6/uL (4.00-5.40); WHITE BLOOD COUNT 13.7 10^3/uL (4.0-10.0)
[2024-09-11] MEDS: FUROSEMIDE 40MG/4ML VIAL IV SCH (09:16)
[2024-09-11 09:19] LABS: ALBUMIN 1.7 G/DL (3.2-5.2); ALKALINE PHOSPHATASE 274 U/L (35-104); ALT/SGPT 16 U/L (7.0-40); AST/SGOT 24 U/L (<34); BILIRUBIN,TOTAL 0.4 MG/DL (0.3-1.2); BLOOD UREA NITROGEN 20 MG/DL (9-23); CALCIUM LEVEL 7.6 MG/DL (8.3-10.6); CARBON DIOXIDE LEVEL 36 MMOL/L (20-31); CHLORIDE LEVEL 95 MMOL/L (98-107); CREATININE FOR GFR 0.75 MG/DL (0.55-1.30); GLOMERULAR FILTRATION RATE > 60.0 (>45); GLUCOSE, FASTING 149 MG/DL (74-106); MAGNESIUM LEVEL 1.6 MG/DL (1.8-2.4); POTASSIUM SERUM 3.6 MMOL/L (3.5-5.1); SODIUM LEVEL 137 MMOL/L (136-145); TOTAL PROTEIN 5.2 G/DL (5.7-8.2)
[2024-09-11] MEDS: LEVEMIR (INSULIN DETEMIR) 1 UNITS/0.01ML SC SCH (09:46)
[2024-09-11] MEDS: MAG SULF 1GM/100ML (MAG RUN) 1 GM in IV 1 EA IV SCH (12:02)
[2024-09-11 15:41] LABS: KETONE, URINE AUTO RFX NEGATIVE (NEGATIVE); MUCUS, URINE RFX SMALL (NEGATIVE); NITRITE, URINE AUTO RFX NEGATIVE (NEGATIVE)
[2024-09-11 15:44] LABS: LEUKOCYTE ESTERASE UR AUTO RFX 3+ (NEGATIVE)
[2024-09-11] MEDS: CEFDINIR 300 MG CAP (OMNICEF) PO SCH (20:52)
[2024-09-12 04:13] VITALS: BP 116/64; TEMP 97.2; O2SAT 90
[2024-09-12 06:11] LABS: DIGOXIN LEVEL 1.7 NG/ML (0.8-2.0)
[2024-09-12 08:03] LABS: HEMATOCRIT 27.1 % (36.0-47.0); HEMOGLOBIN 8.8 g/dl (12.0-15.5); MEAN CORPUSCULAR HEMOGLOBIN 28.9 pg (27.0-33.0); MEAN CORPUSCULAR HGB CONC 32.5 g/dl (32.0-36.5); MEAN CORPUSCULAR VOLUME 89.1 fl (80.0-96.0); PLATELET COUNT, AUTOMATED 125 10^3/uL (150-450); RED BLOOD COUNT 3.04 10^6/uL (4.00-5.40); WHITE BLOOD COUNT 9.7 10^3/uL (4.0-10.0)
[2024-09-12] MEDS: FUROSEMIDE 40 MG TAB PO SCH (08:08)
[2024-09-12 08:57] LABS: BLOOD UREA NITROGEN 24 MG/DL (9-23); CALCIUM LEVEL 7.4 MG/DL (8.3-10.6); CARBON DIOXIDE LEVEL 34 MMOL/L (20-31); CHLORIDE LEVEL 97 MMOL/L (98-107); CREATININE FOR GFR 0.67 MG/DL (0.55-1.30); GLOMERULAR FILTRATION RATE > 60.0 (>45); GLUCOSE, FASTING 139 MG/DL (74-106); POTASSIUM SERUM 3.9 MMOL/L (3.5-5.1); SODIUM LEVEL 137 MMOL/L (136-145)
[2024-09-12] MEDS: MAG SULF 1GM/100ML (MAG RUN) 1 GM in IV 1 EA IV SCH (10:24)
[2024-09-12] MEDS: LOSARTAN 25 MG TAB PO SCH (13:07)
[2024-09-13 05:00] VITALS: BP 117/64; TEMP 97; O2SAT 95
[2024-09-14 04:00] VITALS: BP 116/68; TEMP 97.3; O2SAT 99
[2024-09-14 08:42] LABS: BLOOD UREA NITROGEN 29 MG/DL (9-23); CALCIUM LEVEL 7.3 MG/DL (8.3-10.6); CARBON DIOXIDE LEVEL 36 MMOL/L (20-31); CHLORIDE LEVEL 96 MMOL/L (98-107); CREATININE FOR GFR 0.67 MG/DL (0.55-1.30); GLOMERULAR FILTRATION RATE > 60.0 (>45); GLUCOSE, FASTING 178 MG/DL (74-106); POTASSIUM SERUM 4.8 MMOL/L (3.5-5.1); SODIUM LEVEL 134 MMOL/L (136-145)
[2024-09-14] MEDS: LORATADINE 10 MG TAB PO PRN (11:34)
[2024-09-15 04:15] VITALS: BP 106/73; TEMP 97.3; O2SAT 96
[2024-09-15] MEDS ORDERED: VANICREAM MOISTURIZING SKIN CREAM 113GM TUBE TOP PRN (14:35)
[2024-09-16 04:00] VITALS: BP 117/72; TEMP 97.2; O2SAT 97
[2024-09-16] MEDS: OMEPRAZOLE 20MG CAP PO SCH (13:04)
[2024-09-16] MEDS: traMADol 50 MG TAB PO SCH (13:05)
[2024-09-16] MEDS: ACETAMINOPHEN 325 MG TAB PO SCH (13:05)
[2024-09-17 04:00] VITALS: BP 124/78; TEMP 97.5; O2SAT 99
[2024-09-17 08:12] VITALS: BP 126/74
[2024-09-17] MEDS ORDERED: COLA100C5 PO (11:36)
[2024-09-17] MEDS ORDERED: PERCOCET PO (11:36)
[2024-09-17] MEDS ORDERED: TRAM50TA2 PO (11:36)
[2024-09-17] MEDS ORDERED: NYST10006 TOP (11:36)
[2024-09-17] MEDS ORDERED: LOPR1TAB7 PO (11:36)
[2024-09-17] MEDS ORDERED: LOSA-527 PO (11:36)
[2024-09-17] MEDS ORDERED: MAGN400T2 PO (11:36)
[2024-09-17] MEDS ORDERED: LIDO5TD TD (11:36)
[2024-09-17] MEDS ORDERED: INSUDET SC (11:36)
[2024-09-17] MEDS ORDERED: OMEP-173 PO (11:36)
[2024-09-17] MEDS ORDERED: INSUHUMDS SC (11:36)
[2024-09-17] MEDS ORDERED: SENO8.6T5 PO (11:36)
[2024-09-17] MEDS ORDERED: VANI1CRE5 TOP (11:36)
[2024-09-17] MEDS ORDERED: ELIQ5TAB PO (11:36)
[2024-09-17] MEDS ORDERED: CLAR10TA7 PO (11:36)
[2024-09-17] MEDS ORDERED: FURO40TA2 PO (11:36)
[2024-09-17] MEDS ORDERED: ACET32TAB PO (11:36)
== END 2024-09-17 13:50 | DRG 853 ==
LOC: EDBD 09:32 → M ED 09:32 → M ED INP 12:29 → M ICU 13:18 → M PCU 09-10 13:17 → M MSPAV 09-11 22:50
PROVIDERS: ADMIT Internal Medicine Pulmonary Disease; ATTEND Internal Medicine Nephrology
PROC: 0KBT0ZZ Excision of Left Lower Leg Muscle, Open Approach (ICD-10-PCS; principal; 2024-09-02)
PROC: 0KBS0ZZ Excision of Right Lower Leg Muscle, Open Approach (ICD-10-PCS; 2024-09-02)
PROC: 06HN33Z Insertion of Infusion Device into Left Femoral Vein, Percutaneous Approach (ICD-10-PCS; 2024-09-02)
PROC: 04HL33Z Insertion of Infusion Device into Left Femoral Artery, Percutaneous Approach (ICD-10-PCS; 2024-09-02)
DX: A41.9 Sepsis, unspecified organism (principal); G92.8 Other toxic encephalopathy; R65.21 Severe sepsis with septic shock; G93.41 Metabolic encephalopathy; I50.23 Acute on chronic systolic (congestive) heart failure; E11.10 Type 2 diabetes mellitus with ketoacidosis without coma; L03.115 Cellulitis of right lower limb; L03.116 Cellulitis of left lower limb; N17.9 Acute kidney failure, unspecified; N10 Acute pyelonephritis; E87.1 Hypo-osmolality and hyponatremia; E87.5 Hyperkalemia; E11.51 Type 2 diabetes mellitus with diabetic peripheral angiopathy without gangrene; I48.91 Unspecified atrial fibrillation; B96.20 Unspecified Escherichia coli [E. coli] as the cause of diseases classified elsewhere; I08.3 Combined rheumatic disorders of mitral, aortic and tricuspid valves; I11.0 Hypertensive heart disease with heart failure; E83.42 Hypomagnesemia; E83.39 Other disorders of phosphorus metabolism; Z98.41 Cataract extraction status, right eye; Z98.42 Cataract extraction status, left eye; Z79.899 Other long term (current) drug therapy; Z79.4 Long term (current) use of insulin; B37.2 Candidiasis of skin and nail; L89.150 Pressure ulcer of sacral region, unstageable; I87.8 Other specified disorders of veins

== ENCOUNTER → 2024-09-21 | Outpatient (REF) | payer MEDICARE, OTHER ==
[~2024-09-21] MED LIST changes: +ACET32TAB PO; +CLAR10TA7 PO; +COLA100C5 PO; +ELIQ5TAB PO; +FURO40TA2 PO; +INSUDET SC; +INSUHUMDS SC; +LIDO5TD TD; +LOPR1TAB7 PO; +LOSA-527 PO; +MAGN400T2 PO; +NYST10006 TOP; +OMEP-173 PO; +PERCOCET PO; +SENO8.6T5 PO; +TRAM50TA2 PO; +VANI1CRE5 TOP
[2024-09-21 14:27] LABS: HEMATOCRIT 31.3 % (36.0-47.0); HEMOGLOBIN 9.9 g/dl (12.0-15.5); MEAN CORPUSCULAR HEMOGLOBIN 29.4 pg (27.0-33.0); MEAN CORPUSCULAR HGB CONC 31.6 g/dl (32.0-36.5); MEAN CORPUSCULAR VOLUME 92.9 fl (80.0-96.0); PLATELET COUNT, AUTOMATED 304 10^3/uL (150-450); RED BLOOD COUNT 3.37 10^6/uL (4.00-5.40); WHITE BLOOD COUNT 6.3 10^3/uL (4.0-10.0)
[2024-09-21 14:54] LABS: BLOOD UREA NITROGEN 34 MG/DL (9-23); CALCIUM LEVEL 8.2 MG/DL (8.3-10.6); CARBON DIOXIDE LEVEL 34 MMOL/L (20-31); CHLORIDE LEVEL 99 MMOL/L (98-107); CREATININE FOR GFR 0.78 MG/DL (0.55-1.30); GLOMERULAR FILTRATION RATE > 60.0 (>45); GLUCOSE, FASTING 248 MG/DL (74-106); POTASSIUM SERUM 4.3 MMOL/L (3.5-5.1); SODIUM LEVEL 139 MMOL/L (136-145)
== END ==
LOC: SKLAB2 07:11
PROVIDERS: ATTEND Internal Medicine
DX: E11.9 Type 2 diabetes mellitus without complications (principal)

== ENCOUNTER → 2024-09-28 | Outpatient (REF) | payer MEDICARE, OTHER ==
[2024-09-28 11:33] LABS: HEMATOCRIT 35.1 % (36.0-47.0); HEMOGLOBIN 10.6 g/dl (12.0-15.5); MEAN CORPUSCULAR HEMOGLOBIN 28.9 pg (27.0-33.0); MEAN CORPUSCULAR HGB CONC 30.2 g/dl (32.0-36.5); MEAN CORPUSCULAR VOLUME 95.6 fl (80.0-96.0); PLATELET COUNT, AUTOMATED 339 10^3/uL (150-450); RED BLOOD COUNT 3.67 10^6/uL (4.00-5.40); WHITE BLOOD COUNT 8.6 10^3/uL (4.0-10.0)
[2024-09-28 11:54] LABS: CALCIUM LEVEL 8.1 MG/DL (8.3-10.6); CREATININE FOR GFR 1.19 MG/DL (0.55-1.30); GLOMERULAR FILTRATION RATE 48.5 (>45); POTASSIUM SERUM 5.3 MMOL/L (3.5-5.1)
== END ==
LOC: SKLAB2 08:46
PROVIDERS: ATTEND Internal Medicine
DX: E11.9 Type 2 diabetes mellitus without complications (principal)

== ENCOUNTER → 2024-10-06 | Outpatient (REF) ==
[2024-10-06 11:23] LABS: HEMATOCRIT 38.4 % (36.0-47.0); HEMOGLOBIN 11.3 g/dl (12.0-15.5); MEAN CORPUSCULAR HGB CONC 29.4 g/dl (32.0-36.5); PLATELET COUNT, AUTOMATED 311 10^3/uL (150-450); RED BLOOD COUNT 4.04 10^6/uL (4.00-5.40)
[2024-10-06 11:51] LABS: CALCIUM LEVEL 8.3 MG/DL (8.3-10.6); CREATININE FOR GFR 1.08 MG/DL (0.55-1.30); GLOMERULAR FILTRATION RATE 54.2 (>45)
== END ==
LOC: SKLAB2 06:48
PROVIDERS: ATTEND Internal Medicine
DX: B99.9 Unspecified infectious disease (principal)

== ENCOUNTER 2024-10-19 12:44 | Inpatient (IN) | payer MEDICARE, OTHER ==
[~2024-10-19] VITALS: Ht 160 cm; Wt 73.6 kg
[~2024-10-19 12:44] MED LIST changes: -ACET-907 PO; -BISA10SU4 PR; -INSULADS SC; -METO10TA2 PO; -PANT-23 PO; -POLY17PO18 PO; -TUMS500C PO; -ZINC220CA PO
[2024-10-19 14:08] LABS: BASO % 0.1 % (0.0-1.0); EOS % 0.2 % (0.0-3.0); HEMATOCRIT 46.3 % (36.0-47.0); HEMOGLOBIN 13.7 g/dl (12.0-15.5); LYMPH # 1.2 10^3/uL (1.5-5.0); LYMPH % 14.8 % (24.0-44.0); MEAN CORPUSCULAR HEMOGLOBIN 26.8 pg (27.0-33.0); MEAN CORPUSCULAR HGB CONC 29.6 g/dl (32.0-36.5); MEAN CORPUSCULAR VOLUME 90.6 fl (80.0-96.0); MONO # 0.4 10^3/uL (0.0-0.8); MONO % 4.6 % (2.0-8.0); NEUTROPHILS # 6.7 10^3/uL (1.5-8.5); NEUTROPHILS % 80.1 % (36.0-66.0); PLATELET COUNT, AUTOMATED 344 10^3/uL (150-450); RED BLOOD COUNT 5.11 10^6/uL (4.00-5.40); WHITE BLOOD COUNT 8.3 10^3/uL (4.0-10.0)
[2024-10-19 14:20] LABS: INR 2.98; PROTHROMBIN TIME 30.9 SECONDS (12.5-14.5)
[2024-10-19 14:51] LABS: PARTIAL THROMBOPLASTIN TIME 38.5 SECONDS (24.8-34.2)
[2024-10-19] MEDS: NS 500 ML IV ONE (15:05)
[2024-10-19 15:32] LABS: ALBUMIN 2.5 G/DL (3.2-5.2); BILIRUBIN,DIRECT 1.3 MG/DL (<0.4); BILIRUBIN,TOTAL 1.8 MG/DL (0.3-1.2); CALCIUM LEVEL 8.4 MG/DL (8.3-10.6); CK-MB VALUE MASS 1.2 NG/ML (<3.6); CREATININE FOR GFR 2.11 MG/DL (0.55-1.30); FREE T4 1.18 NG/DL (0.89-1.76); MAGNESIUM LEVEL 2.8 MG/DL (1.8-2.4); MB/CK RELATIVE INDEX 3.07 (< OR =4); PHOSPHORUS LEVEL 5.4 MG/DL (2.4-5.1); POTASSIUM SERUM 6.2 MMOL/L (3.5-5.1); THYROID STIMULATING HORMONE 27.354 uIU/ML (0.55-4.78); TOTAL PROTEIN 6.2 G/DL (5.7-8.2)
[2024-10-19 15:36] LABS: KETONE, URINE AUTO RFX NEGATIVE (NEGATIVE); MUCUS, URINE RFX SMALL (NEGATIVE); RBC, URINE AUTO RFX 9 /HPF (0-3); SQUAM EPITHELIAL CELL UR AURFX 1 /HPF (0-6)
[2024-10-19] MEDS ORDERED: PERCOCET PO (15:37)
[2024-10-19 15:38] LABS: LEUKOCYTE ESTERASE UR AUTO RFX 3+ (NEGATIVE); NITRITE, URINE AUTO RFX POSITIVE (NEGATIVE); WBC, URINE AUTO RFX 139 /HPF (0-3)
[2024-10-19] MEDS ORDERED: TUMS500C PO (15:39)
[2024-10-19] MEDS ORDERED: ACET-907 PO (15:39)
[2024-10-19] MEDS: cefTRIAXone SOD 1 GM in DEXTROSE 5% (D5W) ADV/MINI-BAG 50 ML IV ONE (15:50)
[2024-10-19] MEDS ORDERED: INSULADS SC (16:24)
[2024-10-19] MEDS: DEXTROSE 50% 50ML SYRINGE IV STA ×2 (16:29→17:41)
[2024-10-19] MEDS ORDERED: POLY17PO18 PO (16:30)
[2024-10-19] MEDS ORDERED: LOPR1TAB7 PO (16:30)
[2024-10-19] MEDS: CALCIUM GLUCONATE 1,000 MG in DEXTROSE 5% (D5W) MINI-BAG PLU 100 ML IV ONE (16:30)
[2024-10-19] MEDS: NS (Normal Saline) 0.9% 1,000 ML IV SCH (16:30)
[2024-10-19] MEDS ORDERED: ZINC220CA PO (16:30)
[2024-10-19] MEDS ORDERED: BISA10SU4 PR (16:32)
[2024-10-19] MEDS ORDERED: METO10TA2 PO (16:32)
[2024-10-19] MEDS ORDERED: PANT-23 PO (16:32)
[2024-10-19] MEDS ORDERED: HOME MED LIST COMPLETE! XX SCH ×2 (16:45)
[2024-10-19] MEDS: PATIROMER SORBITEX CALCIUM 8.4 GM POWDER PACKET (VELTASSA) PO ONE (17:40)
[2024-10-19] MEDS: METOPROLOL TARTRATE 100MG TAB PO ONE (17:41)
[2024-10-19] MEDS: HumuLIN R (REGULAR) INSULIN (NovoLIN R) **100U/ML** PER UNIT IV STA (17:41)
[2024-10-19] MEDS ORDERED: BISACODYL 10MG SUPP PR PRN (18:25)
[2024-10-19] MEDS ORDERED: VANICREAM MOISTURIZING SKIN CREAM 113GM TUBE TOP PRN (18:25)
[2024-10-19] MEDS ORDERED: LORATADINE 10 MG TAB PO PRN (18:25)
[2024-10-19] MEDS ORDERED: CALCIUM CARBONATE 500 MG CHEW U/D PO PRN (18:25)
[2024-10-19] MEDS: LR 1,000 ML IV SCH (19:06)
[2024-10-19] MEDS: SENOKOT S TAB PO SCH (21:00)
[2024-10-19] MEDS: MIRALAX *UNIT DOSE* 17GM PACKET PO SCH (21:00)
[2024-10-19] MEDS: SIMVASTATIN 20 MG TAB PO SCH (21:06)
[2024-10-19] MEDS: traMADol 50 MG TAB PO SCH (21:06)
[2024-10-19] MEDS: EZETIMIBE 10MG TABLET (ZETIA) PO SCH (21:07)
[2024-10-20] VITALS (9 sets, daily range): BP systolic 107–155; BP diastolic 74–83; TEMP 96.8–98.1; O2SAT 94–100
[2024-10-20 00:01] LABS: CREATININE FOR GFR 1.92 MG/DL (0.55-1.30); GLOMERULAR FILTRATION RATE 27.9 (>45); POTASSIUM SERUM 5.8 MMOL/L (3.5-5.1)
[2024-10-20] MEDS: METOCLOPRAMIDE 10MG TAB PO SCH (07:30)
[2024-10-20] MEDS: LIDOCAINE 5% (LIDODERM) PATCH TD SCH (09:35)
[2024-10-20] MEDS: PANTOPRAZOLE 40MG VIAL IV SCH (09:35)
[2024-10-20] MEDS: ZINC SULFATE 220 MG CAP PO SCH (10:10)
[2024-10-20] MEDS: METOPROLOL TARTRATE 100MG TAB PO SCH (10:10)
[2024-10-20] MEDS: FUROSEMIDE injection 100 MG, VIAL 2 BAG 13MM ADAPTER 1 EACH in NS 100 ML IV SCH (12:46)
[2024-10-20] MEDS: MIDODRINE 5 MG TAB PO SCH (12:46)
[2024-10-20] MEDS: AMIODARONE HCL 150 MG in IV 1 EA IV ONE (13:28)
[2024-10-20 13:40] LABS: ALBUMIN 2.2 G/DL (3.2-5.2); BILIRUBIN,TOTAL 1.6 MG/DL (0.3-1.2); CALCIUM LEVEL 8.6 MG/DL (8.3-10.6); CREATININE FOR GFR 1.8 MG/DL (0.55-1.30); GLOMERULAR FILTRATION RATE 30.1 (>45); POTASSIUM SERUM 6.3 MMOL/L (3.5-5.1); TOTAL PROTEIN 5.5 G/DL (5.7-8.2)
[2024-10-20] MEDS: AMIODARONE HCL 360 MG in IV 1 EA IV SCH ×2 (13:50→19:48)
[2024-10-20] MEDS: HEPARIN SOD (PORCINE) 5000UNITS/ML 1ML VIAL/SYRINGE SC SCH (14:00)
[2024-10-20] MEDS: CALCIUM GLUCONATE 1,000 MG in DEXTROSE 5% (D5W) MINI-BAG PLU 100 ML IV ONE (15:03)
[2024-10-20] MEDS ORDERED: DEXTROSE 50% 50ML VIAL IV STA ×2 (15:22)
[2024-10-20] MEDS: DEXTROSE 50% 50ML SYRINGE IV STA ×3 (15:24→17:50)
[2024-10-20] MEDS: PATIROMER SORBITEX CALCIUM 8.4 GM POWDER PACKET (VELTASSA) PO ONE (15:49)
[2024-10-20] MEDS: HumuLIN R (REGULAR) INSULIN (NovoLIN R) **100U/ML** PER UNIT IV STA (17:03)
[2024-10-20] MEDS: CHLOROTHIAZIDE 500MG VIAL IV ONE (17:04)
[2024-10-20] MEDS: cefTRIAXone SOD 1 GM in DEXTROSE 5% (D5W) ADV/MINI-BAG 50 ML IV SCH (17:05)
[2024-10-20] MEDS ORDERED: GLUCOSE 4 GM CHEW PO PRN (18:55)
[2024-10-20] MEDS ORDERED: DEXTROSE 50% 50ML SYRINGE IV PRN (18:55)
[2024-10-20] MEDS ORDERED: GLUCAGON INJ 1MG VIAL SC PRN (18:55)
[2024-10-20] MEDS: INSULIN LISPRO (NovoLOG) PER UNIT SC SCH (19:54)
[2024-10-20] MEDS: ACETAMINOPHEN 325 MG TAB PO PRN (20:10)
[2024-10-20 21:31] LABS: ALBUMIN 2.1 G/DL (3.2-5.2); BILIRUBIN,TOTAL 1.2 MG/DL (0.3-1.2); CREATININE FOR GFR 1.9 MG/DL (0.55-1.30); GLOMERULAR FILTRATION RATE 28.2 (>45); MAGNESIUM LEVEL 2.4 MG/DL (1.8-2.4); POTASSIUM SERUM 5.4 MMOL/L (3.5-5.1); TOTAL PROTEIN 5.3 G/DL (5.7-8.2)
[2024-10-21] VITALS (19 sets, daily range): BP systolic 84–137; BP diastolic 57–85; TEMP 96.8–98.1; O2SAT 97–100
[2024-10-21] MEDS: PERCOCET 5MG/325MG TAB PO PRN (00:22)
[2024-10-21 05:19] LABS: ALBUMIN 1.9 G/DL (3.2-5.2); BILIRUBIN,TOTAL 1.1 MG/DL (0.3-1.2); CALCIUM LEVEL 8.2 MG/DL (8.3-10.6); CREATININE FOR GFR 2.03 MG/DL (0.55-1.30); GLOMERULAR FILTRATION RATE 26.2 (>45); MAGNESIUM LEVEL 2.4 MG/DL (1.8-2.4); POTASSIUM SERUM 5.4 MMOL/L (3.5-5.1); TOTAL PROTEIN 4.9 G/DL (5.7-8.2)
[2024-10-21] MEDS: INSULIN LISPRO (NovoLOG) PER UNIT SC SCH (08:04)
[2024-10-21] MEDS: MIDODRINE 5 MG TAB PO SCH (08:04)
[2024-10-21] MEDS: CHLOROTHIAZIDE 500MG VIAL IV ONE (08:56)
[2024-10-21] MEDS: PATIROMER SORBITEX CALCIUM 8.4 GM POWDER PACKET (VELTASSA) PO ONE (11:03)
[2024-10-21] MEDS: CEFDINIR 300 MG CAP (OMNICEF) PO SCH (13:58)
[2024-10-21] MEDS ORDERED: SODIUM CHLORIDE 0.9% INJ 10 ML SYR IV PRN (15:40)
[2024-10-21] MEDS: AMIODARONE HCL 360 MG in IV 1 EA IV SCH (17:15)
[2024-10-21] MEDS: SODIUM CHLORIDE 0.9% INJ 10 ML SYR IV SCH (17:15)
[2024-10-21 20:56] LABS: CALCIUM LEVEL 7.9 MG/DL (8.3-10.6); CREATININE FOR GFR 1.94 MG/DL (0.55-1.30); GLOMERULAR FILTRATION RATE 27.6 (>45); POTASSIUM SERUM 4.1 MMOL/L (3.5-5.1)
[2024-10-22] VITALS (12 sets, daily range): BP systolic 93–121; BP diastolic 60–87; TEMP 96.9–98; O2SAT 96–100
[2024-10-22 05:54] LABS: ALBUMIN 1.9 G/DL (3.2-5.2); BILIRUBIN,TOTAL 0.9 MG/DL (0.3-1.2); CALCIUM LEVEL 7.9 MG/DL (8.3-10.6); CREATININE FOR GFR 1.82 MG/DL (0.55-1.30); GLOMERULAR FILTRATION RATE 29.7 (>45); MAGNESIUM LEVEL 2.2 MG/DL (1.8-2.4); POTASSIUM SERUM 3.4 MMOL/L (3.5-5.1); TOTAL PROTEIN 5.1 G/DL (5.7-8.2)
[2024-10-22] MEDS: POTASSIUM CHLORIDE 10MEQ SR TABLET PO SCH (08:24)
[2024-10-22] MEDS: AMIODARONE 200 MG TAB (PACERONE) PO SCH (08:29)
[2024-10-22 13:42] LABS: HEMATOCRIT 41.2 % (36.0-47.0); HEMOGLOBIN 12.7 g/dl (12.0-15.5); MEAN CORPUSCULAR HEMOGLOBIN 26.5 pg (27.0-33.0); MEAN CORPUSCULAR HGB CONC 30.8 g/dl (32.0-36.5); MEAN CORPUSCULAR VOLUME 85.8 fl (80.0-96.0); PLATELET COUNT, AUTOMATED 281 10^3/uL (150-450); WHITE BLOOD COUNT 8.9 10^3/uL (4.0-10.0)
[2024-10-22 13:58] LABS: INR 1.57; PARTIAL THROMBOPLASTIN TIME 33.7 SECONDS (24.8-34.2)
[2024-10-22] MEDS: MAGNESIUM OXIDE 400MG TAB (MAG-OX) PO SCH (16:33)
[2024-10-22] MEDS: APIXABAN 5 MG TAB (ELIQUIS) PO SCH (16:34)
[2024-10-22] MEDS: traMADol 50 MG TAB PO PRN (20:22)
[2024-10-23] VITALS: BP 125/66; TEMP 97; O2SAT 99
[2024-10-23 04:00] VITALS: BP 104/77; TEMP 97; O2SAT 97
[2024-10-23 04:25] LABS: HEMATOCRIT 37.9 % (36.0-47.0); MEAN CORPUSCULAR HGB CONC 31.7 g/dl (32.0-36.5); MEAN CORPUSCULAR VOLUME 85.4 fl (80.0-96.0); PLATELET COUNT, AUTOMATED 220 10^3/uL (150-450); RED BLOOD COUNT 4.44 10^6/uL (4.00-5.40); WHITE BLOOD COUNT 7.5 10^3/uL (4.0-10.0)
[2024-10-23 04:54] LABS: ALBUMIN 1.9 G/DL (3.2-5.2); BILIRUBIN,TOTAL 0.7 MG/DL (0.3-1.2); CALCIUM LEVEL 7.6 MG/DL (8.3-10.6); CREATININE FOR GFR 1.62 MG/DL (0.55-1.30); GLOMERULAR FILTRATION RATE 33.9 (>45); POTASSIUM SERUM 3.2 MMOL/L (3.5-5.1); TOTAL PROTEIN 4.9 G/DL (5.7-8.2)
[2024-10-23 08:00] VITALS: BP 111/89; TEMP 97.5; O2SAT 98
[2024-10-23] MEDS ORDERED: POTASSIUM CHLORIDE 10MEQ SR TABLET PO SCH (09:00)
[2024-10-23] MEDS: POTASSIUM CHLORIDE 10MEQ SR TABLET PO SCH (09:17)
[2024-10-23 12:00] VITALS: BP 145/72; TEMP 97.2; O2SAT 98
[2024-10-23] MEDS: LEVEMIR (INSULIN DETEMIR) 1 UNITS/0.01ML SC SCH ×2 (14:15→20:34)
[2024-10-23 16:00] VITALS: BP 100/74; TEMP 97.5; O2SAT 98
[2024-10-23 20:00] VITALS: BP 127/76; TEMP 97.4; O2SAT 98
[2024-10-23] MEDS: CEFDINIR 300 MG CAP (OMNICEF) PO SCH (20:32)
[2024-10-24] VITALS (7 sets, daily range): BP systolic 92–126; BP diastolic 68–79; TEMP 97.4–98.4; O2SAT 98–100
[2024-10-24 05:10] LABS: HEMATOCRIT 39.4 % (36.0-47.0); HEMOGLOBIN 11.7 g/dl (12.0-15.5); MEAN CORPUSCULAR HGB CONC 29.7 g/dl (32.0-36.5); MEAN CORPUSCULAR VOLUME 87.6 fl (80.0-96.0); PLATELET COUNT, AUTOMATED 218 10^3/uL (150-450); WHITE BLOOD COUNT 6.6 10^3/uL (4.0-10.0)
[2024-10-24 05:31] LABS: BILIRUBIN,TOTAL 0.5 MG/DL (0.3-1.2); CALCIUM LEVEL 7.3 MG/DL (8.3-10.6); CREATININE FOR GFR 1.14 MG/DL (0.55-1.30); GLOMERULAR FILTRATION RATE 50.9 (>45); POTASSIUM SERUM 3.7 MMOL/L (3.5-5.1); TOTAL PROTEIN 5.1 G/DL (5.7-8.2)
[2024-10-25 04:02] VITALS: BP 128/81; TEMP 97.8; O2SAT 97
[2024-10-25 07:00] LABS: HEMATOCRIT 38.9 % (36.0-47.0); HEMOGLOBIN 11.6 g/dl (12.0-15.5); MEAN CORPUSCULAR HEMOGLOBIN 26.1 pg (27.0-33.0); MEAN CORPUSCULAR HGB CONC 29.8 g/dl (32.0-36.5); MEAN CORPUSCULAR VOLUME 87.4 fl (80.0-96.0); PLATELET COUNT, AUTOMATED 178 10^3/uL (150-450); RED BLOOD COUNT 4.45 10^6/uL (4.00-5.40)
[2024-10-25 07:22] LABS: ALBUMIN 2.1 G/DL (3.2-5.2); BILIRUBIN,TOTAL 0.6 MG/DL (0.3-1.2); CALCIUM LEVEL 6.9 MG/DL (8.3-10.6); CREATININE FOR GFR 1.07 MG/DL (0.55-1.30); GLOMERULAR FILTRATION RATE 54.8 (>45); POTASSIUM SERUM 3.1 MMOL/L (3.5-5.1); TOTAL PROTEIN 5.2 G/DL (5.7-8.2)
[2024-10-25 08:09] VITALS: BP 134/87; TEMP 97.9; O2SAT 97
[2024-10-25] MEDS: POTASSIUM CHLORIDE 10MEQ SR TABLET PO ONE ×2 (09:00→11:18)
[2024-10-25] MEDS: LEVEMIR (INSULIN DETEMIR) 1 UNITS/0.01ML SC SCH (09:04)
[2024-10-25 12:22] VITALS: BP 105/82; TEMP 98; O2SAT 98
[2024-10-25] MEDS: MIDODRINE 5 MG TAB PO SCH (13:12)
[2024-10-25] MEDS: SPIRONOLACTONE 25 MG TAB PO SCH (13:13)
[2024-10-25] MEDS: DAPAGLIFLOZIN PROPANEDIOL 10MG TABLET (FARXIGA) PO SCH (13:13)
[2024-10-25 16:02] VITALS: BP 122/84; TEMP 97.8; O2SAT 98
[2024-10-25 20:00] VITALS: BP 108/64; TEMP 97.4; O2SAT 94
[2024-10-26] VITALS (8 sets, daily range): BP systolic 112–142; BP diastolic 75–91; TEMP 96.7–98.6; O2SAT 94–100
[2024-10-26 08:09] LABS: HEMATOCRIT 41.7 % (36.0-47.0); HEMOGLOBIN 12.8 g/dl (12.0-15.5); MEAN CORPUSCULAR HEMOGLOBIN 26.7 pg (27.0-33.0); MEAN CORPUSCULAR HGB CONC 30.7 g/dl (32.0-36.5); MEAN CORPUSCULAR VOLUME 87.1 fl (80.0-96.0); PLATELET COUNT, AUTOMATED 192 10^3/uL (150-450); RED BLOOD COUNT 4.79 10^6/uL (4.00-5.40)
[2024-10-26 10:35] LABS: ALBUMIN 2.4 G/DL (3.2-5.2); BILIRUBIN,TOTAL 0.7 MG/DL (0.3-1.2); CALCIUM LEVEL 7.6 MG/DL (8.3-10.6); CREATININE FOR GFR 1.11 MG/DL (0.55-1.30); GLOMERULAR FILTRATION RATE 52.5 (>45); POTASSIUM SERUM 4.8 MMOL/L (3.5-5.1); TOTAL PROTEIN 5.8 G/DL (5.7-8.2)
[2024-10-26] MEDS: FUROSEMIDE 20 MG TAB PO SCH (13:40)
[2024-10-26] MEDS: SPIRONOLACTONE 25 MG TAB PO SCH (17:58)
[2024-10-27] VITALS (8 sets, daily range): BP systolic 99–129; BP diastolic 73–87; TEMP 97–98.7; O2SAT 94–100
[2024-10-27 07:52] LABS: HEMATOCRIT 41.3 % (36.0-47.0); HEMOGLOBIN 12.4 g/dl (12.0-15.5); MEAN CORPUSCULAR HEMOGLOBIN 26.1 pg (27.0-33.0); MEAN CORPUSCULAR VOLUME 86.8 fl (80.0-96.0); PLATELET COUNT, AUTOMATED 183 10^3/uL (150-450); RED BLOOD COUNT 4.76 10^6/uL (4.00-5.40); WHITE BLOOD COUNT 7.8 10^3/uL (4.0-10.0)
[2024-10-27 08:20] LABS: ALBUMIN 2.3 G/DL (3.2-5.2); BILIRUBIN,TOTAL 0.6 MG/DL (0.3-1.2); CALCIUM LEVEL 7.9 MG/DL (8.3-10.6); CREATININE FOR GFR 1.1 MG/DL (0.55-1.30); GLOMERULAR FILTRATION RATE 53.1 (>45); POTASSIUM SERUM 4.8 MMOL/L (3.5-5.1); TOTAL PROTEIN 5.5 G/DL (5.7-8.2)
[2024-10-27] MEDS: PANTOPRAZOLE 40MG TAB (PROTONIX) PO SCH (09:30)
[2024-10-27] MEDS: INSULIN LISPRO (NovoLOG) PER UNIT SC SCH (12:00)
[2024-10-27] MEDS: LEVEMIR (INSULIN DETEMIR) 1 UNITS/0.01ML SC SCH (21:35)
[2024-10-28 04:08] VITALS: BP 118/78; TEMP 97; O2SAT 97
[2024-10-28 07:15] VITALS: BP 114/76; TEMP 98; O2SAT 97
[2024-10-28] MEDS: FUROSEMIDE 20 MG TAB PO SCH (08:22)
[2024-10-28] MEDS ORDERED: PILL CUTTER 1 EACH XX ONE (08:27)
[2024-10-28] MEDS ORDERED: BACITRACIN OINTMENT 30GM TUBE TOP SCH (09:00)
[2024-10-28] MEDS ORDERED: AMIO200T49 PO (12:25)
[2024-10-28] MEDS ORDERED: FURO20TA2 PO (12:25)
[2024-10-28] MEDS ORDERED: MIDO5TA PO (12:25)
[2024-10-28] MEDS ORDERED: ALDA25TA2 PO (12:25)
[2024-10-28] MEDS ORDERED: FARX1TAB3 PO (12:25)
[2024-10-28 12:41] VITALS: BP 97/75; TEMP 98; O2SAT 100
[2024-10-28] MEDS: NEOSPORIN OINT 0.9 GM PKT TOP ONE (12:51)
== END 2024-10-28 13:26 | DRG 871 ==
LOC: M ED 12:44 → M ED INP 17:20 → M ICU 10-20 16:38 → M PCU 10-24 10:29
PROVIDERS: ADMIT Internal Medicine Pulmonary Disease; ATTEND Internal Medicine Nephrology
DX: A41.51 Sepsis due to Escherichia coli [E. coli] (principal); I50.23 Acute on chronic systolic (congestive) heart failure; N17.9 Acute kidney failure, unspecified; I13.0 Hypertensive heart and chronic kidney disease with heart failure and stage 1 through stage 4 chronic kidney disease, or unspecified chronic kidney disease; N39.0 Urinary tract infection, site not specified; I48.20 Chronic atrial fibrillation, unspecified; I51.81 Takotsubo syndrome; E87.20 Acidosis, unspecified; R65.20 Severe sepsis without septic shock; E11.649 Type 2 diabetes mellitus with hypoglycemia without coma; I25.10 Atherosclerotic heart disease of native coronary artery without angina pectoris; E87.6 Hypokalemia; I70.25 Atherosclerosis of native arteries of other extremities with ulceration; N18.9 Chronic kidney disease, unspecified; D64.9 Anemia, unspecified; E11.622 Type 2 diabetes mellitus with other skin ulcer; B96.20 Unspecified Escherichia coli [E. coli] as the cause of diseases classified elsewhere; E78.5 Hyperlipidemia, unspecified; E11.22 Type 2 diabetes mellitus with diabetic chronic kidney disease; L89.152 Pressure ulcer of sacral region, stage 2; Z79.899 Other long term (current) drug therapy; Z79.4 Long term (current) use of insulin; Z98.49 Cataract extraction status, unspecified eye; E87.5 Hyperkalemia

== ENCOUNTER → 2024-10-19 | Outpatient (REF) ==
[~2024-10-19] MED LIST changes: +ACET-907 PO; +BISA10SU4 PR; +INSULADS SC; +METO10TA2 PO; +PANT-23 PO; +POLY17PO18 PO; +TUMS500C PO; +ZINC220CA PO
[2024-10-19 11:20] LABS: BASO % 0.2 % (0.0-1.0); EOS # 0.1 10^3/uL (0.0-0.5); EOS % 0.5 % (0.0-3.0); HEMATOCRIT 47.2 % (36.0-47.0); HEMOGLOBIN 14.1 g/dl (12.0-15.5); LYMPH # 1.5 10^3/uL (1.5-5.0); LYMPH % 14.8 % (24.0-44.0); MEAN CORPUSCULAR HEMOGLOBIN 27.3 pg (27.0-33.0); MEAN CORPUSCULAR HGB CONC 29.9 g/dl (32.0-36.5); MEAN CORPUSCULAR VOLUME 91.3 fl (80.0-96.0); MONO # 0.5 10^3/uL (0.0-0.8); MONO % 5.2 % (2.0-8.0); NEUTROPHILS # 7.8 10^3/uL (1.5-8.5); PLATELET COUNT, AUTOMATED 363 10^3/uL (150-450); RED BLOOD COUNT 5.17 10^6/uL (4.00-5.40); WHITE BLOOD COUNT 9.9 10^3/uL (4.0-10.0)
[2024-10-19 11:46] LABS: CALCIUM LEVEL 8.6 MG/DL (8.3-10.6); CREATININE FOR GFR 2.02 MG/DL (0.55-1.30); GLOMERULAR FILTRATION RATE 26.3 (>45); POTASSIUM SERUM 6.6 MMOL/L (3.5-5.1)
== END ==
LOC: SKLAB2 10:29
PROVIDERS: ATTEND Internal Medicine
DX: I50.9 Heart failure, unspecified (principal)

== ENCOUNTER → 2024-10-30 | Outpatient (REF) ==
[~2024-10-30] MED LIST changes: +ACET-907 PO; +ALDA25TA2 PO; +AMIO200T49 PO; +BISA10SU4 PR; +FARX1TAB3 PO; +FURO20TA2 PO; +INSULADS SC; +METO10TA2 PO; +MIDO5TA PO; +PANT-23 PO; +POLY17PO18 PO; +TUMS500C PO; +ZINC220CA PO
[2024-10-30 13:58] LABS: MEAN CORPUSCULAR HEMOGLOBIN 25.9 pg (27.0-33.0); MEAN CORPUSCULAR VOLUME 86.2 fl (80.0-96.0); PLATELET COUNT, AUTOMATED 223 10^3/uL (150-450); RED BLOOD COUNT 4.64 10^6/uL (4.00-5.40); WHITE BLOOD COUNT 8.8 10^3/uL (4.0-10.0)
[2024-10-30 14:36] LABS: ALBUMIN 2.4 G/DL (3.2-5.2); BILIRUBIN,TOTAL 0.8 MG/DL (0.3-1.2); CREATININE FOR GFR 1.17 MG/DL (0.55-1.30); GLOMERULAR FILTRATION RATE 49.4 (>45); POTASSIUM SERUM 5.4 MMOL/L (3.5-5.1); TOTAL PROTEIN 5.8 G/DL (5.7-8.2)
== END ==
LOC: SKLAB2 10:38
PROVIDERS: ATTEND Internal Medicine
DX: I50.9 Heart failure, unspecified (principal)

== ENCOUNTER → 2024-11-06 | Outpatient (REF) ==
[2024-11-06 14:06] LABS: HEMATOCRIT 44.9 % (36.0-47.0); HEMOGLOBIN 13.5 g/dl (12.0-15.5); MEAN CORPUSCULAR HEMOGLOBIN 25.5 pg (27.0-33.0); MEAN CORPUSCULAR HGB CONC 30.1 g/dl (32.0-36.5); MEAN CORPUSCULAR VOLUME 84.7 fl (80.0-96.0); PLATELET COUNT, AUTOMATED 281 10^3/uL (150-450); WHITE BLOOD COUNT 10.8 10^3/uL (4.0-10.0)
[2024-11-06 14:39] LABS: ALBUMIN 2.4 G/DL (3.2-5.2); BILIRUBIN,TOTAL 0.9 MG/DL (0.3-1.2); CALCIUM LEVEL 8.3 MG/DL (8.3-10.6); CREATININE FOR GFR 1.28 MG/DL (0.55-1.30); GLOMERULAR FILTRATION RATE 44.6 (>45); POTASSIUM SERUM 4.8 MMOL/L (3.5-5.1); TOTAL PROTEIN 5.6 G/DL (5.7-8.2)
== END ==
LOC: SKLAB2 09:18
PROVIDERS: ATTEND Internal Medicine
DX: I50.9 Heart failure, unspecified (principal)

== ENCOUNTER → 2024-11-13 | Outpatient (REF) ==
[2024-11-13 11:28] LABS: HEMATOCRIT 39.4 % (36.0-47.0); HEMOGLOBIN 11.9 g/dl (12.0-15.5); MEAN CORPUSCULAR HEMOGLOBIN 24.9 pg (27.0-33.0); MEAN CORPUSCULAR HGB CONC 30.2 g/dl (32.0-36.5); MEAN CORPUSCULAR VOLUME 82.4 fl (80.0-96.0); PLATELET COUNT, AUTOMATED 281 10^3/uL (150-450); RED BLOOD COUNT 4.78 10^6/uL (4.00-5.40); WHITE BLOOD COUNT 7.1 10^3/uL (4.0-10.0)
[2024-11-13 12:22] LABS: ALBUMIN 2.3 G/DL (3.2-5.2); ALKALINE PHOSPHATASE 980 U/L (35-104); ALT/SGPT 60 U/L (7.0-40); AST/SGOT 50 U/L (<34); BILIRUBIN,TOTAL 0.6 MG/DL (0.3-1.2); BLOOD UREA NITROGEN 36 MG/DL (9-23); CARBON DIOXIDE LEVEL 28 MMOL/L (20-31); CHLORIDE LEVEL 98 MMOL/L (98-107); CREATININE FOR GFR 0.92 MG/DL (0.55-1.30); GLOMERULAR FILTRATION RATE > 60.0 (>45); GLUCOSE, FASTING 342 MG/DL (74-106); POTASSIUM SERUM 4.8 MMOL/L (3.5-5.1); SODIUM LEVEL 135 MMOL/L (136-145); TOTAL PROTEIN 5.6 G/DL (5.7-8.2)
== END ==
LOC: SKLAB2 09:51
PROVIDERS: ATTEND Internal Medicine
DX: I50.9 Heart failure, unspecified (principal)

== ENCOUNTER → 2024-12-03 | Outpatient (REF) | payer MEDICARE, OTHER ==
[2024-12-03 12:17] LABS: BASO % 0.5 % (0.0-1.0); EOS % 0.5 % (0.0-3.0); HEMATOCRIT 43.2 % (36.0-47.0); HEMOGLOBIN 12.7 g/dl (12.0-15.5); LYMPH # 0.9 10^3/uL (1.5-5.0); LYMPH % 11.6 % (24.0-44.0); MEAN CORPUSCULAR HEMOGLOBIN 23.1 pg (27.0-33.0); MEAN CORPUSCULAR HGB CONC 29.4 g/dl (32.0-36.5); MEAN CORPUSCULAR VOLUME 78.5 fl (80.0-96.0); MONO # 0.4 10^3/uL (0.0-0.8); MONO % 4.7 % (2.0-8.0); NEUTROPHILS # 6.5 10^3/uL (1.5-8.5); NEUTROPHILS % 82.3 % (36.0-66.0); PLATELET COUNT, AUTOMATED 376 10^3/uL (150-450); WHITE BLOOD COUNT 7.8 10^3/uL (4.0-10.0)
[2024-12-03 12:40] LABS: URIC ACID 4.2 MG/DL (3.1-7.8)
[2024-12-03 13:42] LABS: ALBUMIN 2.5 G/DL (3.2-5.2); BLOOD UREA NITROGEN 42 MG/DL (9-23); CALCIUM LEVEL 8.4 MG/DL (8.3-10.6); CARBON DIOXIDE LEVEL 28 MMOL/L (20-31); CHLORIDE LEVEL 97 MMOL/L (98-107); CREATININE FOR GFR 0.76 MG/DL (0.55-1.30); GLOMERULAR FILTRATION RATE > 60.0 (>45); GLUCOSE, FASTING 410 MG/DL (74-106); MAGNESIUM LEVEL 2.1 MG/DL (1.8-2.4); PHOSPHORUS LEVEL 4.7 MG/DL (2.4-5.1); POTASSIUM SERUM 5.4 MMOL/L (3.5-5.1); SODIUM LEVEL 132 MMOL/L (136-145)
== END ==
LOC: SKLAB2 10:56
PROVIDERS: ATTEND Internal Medicine
DX: I10 Essential (primary) hypertension (principal)

== ENCOUNTER → 2024-12-09 | Outpatient (REF) | payer MEDICARE, OTHER ==
[2024-12-09 16:11] LABS: BASO % 0.5 % (0.0-1.0); EOS # 0.1 10^3/uL (0.0-0.5); EOS % 1.1 % (0.0-3.0); HEMOGLOBIN 13.1 g/dl (12.0-15.5); LYMPH % 12.4 % (24.0-44.0); MEAN CORPUSCULAR HEMOGLOBIN 22.9 pg (27.0-33.0); MEAN CORPUSCULAR HGB CONC 29.1 g/dl (32.0-36.5); MEAN CORPUSCULAR VOLUME 78.7 fl (80.0-96.0); MONO # 0.6 10^3/uL (0.0-0.8); MONO % 7.4 % (2.0-8.0); NEUTROPHILS # 6.2 10^3/uL (1.5-8.5); NEUTROPHILS % 78.3 % (36.0-66.0); PLATELET COUNT, AUTOMATED 414 10^3/uL (150-450); RED BLOOD COUNT 5.72 10^6/uL (4.00-5.40); WHITE BLOOD COUNT 7.9 10^3/uL (4.0-10.0)
[2024-12-09 16:25] LABS: URIC ACID 4.6 MG/DL (3.1-7.8)
[2024-12-09 16:28] LABS: ALBUMIN 2.9 G/DL (3.2-5.2); BLOOD UREA NITROGEN 52 MG/DL (9-23); CALCIUM LEVEL 8.9 MG/DL (8.3-10.6); CARBON DIOXIDE LEVEL 31 MMOL/L (20-31); CHLORIDE LEVEL 91 MMOL/L (98-107); CREATININE FOR GFR 0.93 MG/DL (0.55-1.30); GLOMERULAR FILTRATION RATE > 60.0 (>45); GLUCOSE, FASTING 335 MG/DL (74-106); MAGNESIUM LEVEL 2.4 MG/DL (1.8-2.4); PHOSPHORUS LEVEL 5.5 MG/DL (2.4-5.1); POTASSIUM SERUM 5.4 MMOL/L (3.5-5.1); SODIUM LEVEL 130 MMOL/L (136-145)
== END ==
LOC: SKLAB2 13:35
PROVIDERS: ATTEND Internal Medicine
DX: N18.9 Chronic kidney disease, unspecified (principal)

== ENCOUNTER → 2024-12-11 | Outpatient (REF) | payer MEDICARE, OTHER ==
[2024-12-11 07:10] LABS: CALCIUM LEVEL 9.2 MG/DL (8.3-10.6); GLOMERULAR FILTRATION RATE 59.2 (>45); POTASSIUM SERUM 5.1 MMOL/L (3.5-5.1)
== END ==
LOC: SKLAB2 07:00
PROVIDERS: ATTEND Internal Medicine
DX: I50.9 Heart failure, unspecified (principal)

== ENCOUNTER → 2024-12-18 | Outpatient (REF) | payer OTHER, MEDICAID ==
[2024-12-18 07:19] LABS: BLOOD UREA NITROGEN 62 MG/DL (9-23); CALCIUM LEVEL 9.1 MG/DL (8.3-10.6); CARBON DIOXIDE LEVEL 29 MMOL/L (20-31); CHLORIDE LEVEL 97 MMOL/L (98-107); CREATININE FOR GFR 0.95 MG/DL (0.55-1.30); GLOMERULAR FILTRATION RATE > 60.0 (>45); GLUCOSE, FASTING 208 MG/DL (74-106); POTASSIUM SERUM 4.9 MMOL/L (3.5-5.1); SODIUM LEVEL 135 MMOL/L (136-145)
== END ==
LOC: SKLAB2 07:00
PROVIDERS: ATTEND Internal Medicine
DX: I50.9 Heart failure, unspecified (principal)

== ENCOUNTER → 2025-01-06 | Outpatient (REF) | payer OTHER, MEDICARE, MEDICAID ==
[2025-01-06 16:09] LABS: BASO % 0.3 % (0.0-1.0); EOS # 0.2 10^3/uL (0.0-0.5); EOS % 2.2 % (0.0-3.0); HEMATOCRIT 39.4 % (36.0-47.0); LYMPH # 0.9 10^3/uL (1.5-5.0); LYMPH % 11.9 % (24.0-44.0); MEAN CORPUSCULAR HGB CONC 30.5 g/dl (32.0-36.5); MONO # 0.6 10^3/uL (0.0-0.8); MONO % 8.7 % (2.0-8.0); NEUTROPHILS # 5.6 10^3/uL (1.5-8.5); NEUTROPHILS % 76.6 % (36.0-66.0); PLATELET COUNT, AUTOMATED 293 10^3/uL (150-450); RED BLOOD COUNT 4.99 10^6/uL (4.00-5.40); WHITE BLOOD COUNT 7.2 10^3/uL (4.0-10.0)
[2025-01-06 16:29] LABS: CALCIUM LEVEL 8.4 MG/DL (8.3-10.6); GLOMERULAR FILTRATION RATE 62.5 (>45); POTASSIUM SERUM 4.8 MMOL/L (3.5-5.1)
== END ==
LOC: SKLAB2 13:10
PROVIDERS: ATTEND Internal Medicine
DX: R91.8 Other nonspecific abnormal finding of lung field (principal); R09.81 Nasal congestion

== ENCOUNTER 2025-01-14 09:35 | Inpatient (IN) | payer MEDICARE, OTHER, MEDICAID ==
[~2025-01-14] VITALS: Ht 152.4 cm; Wt 56.4 kg
[2025-01-14 10:30] LABS: BASO % 0.2 % (0.0-1.0); EOS % 0.1 % (0.0-3.0); HEMATOCRIT 45.2 % (36.0-47.0); HEMOGLOBIN 13.4 g/dl (12.0-15.5); LYMPH # 0.7 10^3/uL (1.5-5.0); LYMPH % 4.1 % (24.0-44.0); MEAN CORPUSCULAR HEMOGLOBIN 23.7 pg (27.0-33.0); MEAN CORPUSCULAR HGB CONC 29.6 g/dl (32.0-36.5); MONO # 0.8 10^3/uL (0.0-0.8); MONO % 4.7 % (2.0-8.0); NEUTROPHILS # 15.7 10^3/uL (1.5-8.5); PLATELET COUNT, AUTOMATED 413 10^3/uL (150-450); RED BLOOD COUNT 5.65 10^6/uL (4.00-5.40); WHITE BLOOD COUNT 17.4 10^3/uL (4.0-10.0)
[2025-01-14 10:42] LABS: INR 2.65; PARTIAL THROMBOPLASTIN TIME 32.7 SECONDS (24.8-34.2); PROTHROMBIN TIME 28.3 SECONDS (12.5-14.5)
[2025-01-14 10:46] LABS: APPEARANCE, URINE HAZY (CLEAR); BACTERIA, URINE AUTO 1+ (NEGATIVE); BILIRUBIN, URINE AUTO NEGATIVE (NEGATIVE); BLOOD, URINE BLOOD 2+ (NEGATIVE); COLOR, URINE YELLOW (YELLOW); GLUCOSE, URINE (UA) AUTO 3+ mg/dL (NEGATIVE); KETONE, URINE AUTO NEGATIVE (NEGATIVE); LEUKOCYTE ESTERASE, URINE AUTO 2+ (NEGATIVE); NITRITE, URINE AUTO NEGATIVE (NEGATIVE); PROTEIN, URINE AUTO 2+ mg/dL (NEGATIVE); RBC, URINE AUTO 2 /HPF (0-3); SPECIFIC GRAVITY URINE AUTO 1.016 (1.002-1.035); SQUAMOUS EPITHELIAL CELL UR AU 0 /HPF (0-6); UROBILINOGEN, URINE AUTO 0.2 mg/dL (0.0-2.0); WBC, URINE AUTO 58 /HPF (0-3)
[2025-01-14] MEDS: cefTRIAXone SOD 2 GM in DEXTROSE 5% (D5W) ADV/MINI-BAG 50 ML IV ONE (11:08)
[2025-01-14 11:11] LABS: CK-MB VALUE MASS < 1.0 NG/ML (<3.6)
[2025-01-14 11:13] LABS: ALBUMIN 2.4 G/DL (3.2-5.2); ALKALINE PHOSPHATASE 364 U/L (35-104); ALT/SGPT 38 U/L (7.0-40); AST/SGOT 34 U/L (<34); BILIRUBIN,DIRECT 0.3 MG/DL (<0.4); BILIRUBIN,TOTAL 0.5 MG/DL (0.3-1.2); BLOOD UREA NITROGEN 83 MG/DL (9-23); CALCIUM LEVEL 9.4 MG/DL (8.3-10.6); CARBON DIOXIDE LEVEL 27 MMOL/L (20-31); CHLORIDE LEVEL 99 MMOL/L (98-107); CREATININE FOR GFR 1.36 MG/DL (0.55-1.30); GLOMERULAR FILTRATION RATE 43.2 (>45); GLUCOSE, FASTING 270 MG/DL (74-106); POTASSIUM SERUM 5.4 MMOL/L (3.5-5.1); SODIUM LEVEL 139 MMOL/L (136-145); TOTAL PROTEIN 6.7 G/DL (5.7-8.2)
[2025-01-14 11:20] LABS: PROCALCITONIN 3.19 ng/ml
[2025-01-14 11:29] LABS: C REACTIVE PROTEIN QUANTITATIV 31.95 MG/DL (<1.0); CPK CREATINE PHOSPHOKINASE 21 U/L (34-145); MB/CK RELATIVE INDEX 4.76 (< OR =4)
[2025-01-14] MEDS ORDERED: ELIQ5TAB PO (11:31)
[2025-01-14] MEDS ORDERED: MIDO5TA PO (11:31)
[2025-01-14] MEDS ORDERED: MAGN400T2 PO (11:31)
[2025-01-14] MEDS ORDERED: GUAI600T54 PO (11:31)
[2025-01-14] MEDS ORDERED: MIRT-88 PO (11:31)
[2025-01-14] MEDS ORDERED: TRAM50TA2 PO (11:31)
[2025-01-14] MEDS ORDERED: SENN-186 PO (11:31)
[2025-01-14] MEDS ORDERED: SPIR-10 PO (11:49)
[2025-01-14] MEDS ORDERED: LORA-622 PO (11:49)
[2025-01-14] MEDS ORDERED: INSUH10VL SC (11:49)
[2025-01-14] MEDS ORDERED: JARD1TAB3 PO (11:49)
[2025-01-14] MEDS ORDERED: FLON1SPR NARES (11:49)
[2025-01-14] MEDS ORDERED: AMIO200T37 PO (11:49)
[2025-01-14] MEDS ORDERED: FURO40TA2 PO (11:49)
[2025-01-14] MEDS ORDERED: REGL5TAB2 PO (11:49)
[2025-01-14] MEDS ORDERED: CERA453C2 TOP (11:49)
[2025-01-14] MEDS ORDERED: MILKSUS3 PO (11:52)
[2025-01-14] MEDS ORDERED: VENTAER INH (11:52)
[2025-01-14] MEDS ORDERED: LANTINJ4 SC (11:52)
[2025-01-14] MEDS ORDERED: HOME MED LIST COMPLETE! XX SCH (11:55)
[2025-01-14] MEDS ORDERED: GLUCAGON INJ 1MG VIAL SC PRN (14:50)
[2025-01-14] MEDS ORDERED: IPRATROPIUM 0.5MG/ALBUTEROL 2.5MG INH SOL UD 3ML NEB PRN (14:50)
[2025-01-14] MEDS ORDERED: GLUCOSE 4 GM CHEW PO PRN (14:50)
[2025-01-14 15:32] LABS: FREE T4 0.65 NG/DL (0.89-1.76); THYROID STIMULATING HORMONE 19.541 uIU/ML (0.55-4.78)
[2025-01-14 15:54] VITALS: BP 131/79; TEMP 97.3
[2025-01-14] MEDS: FUROSEMIDE 40MG/4ML VIAL IV SCH (16:49)
[2025-01-14] MEDS: DOXYCYCLINE HYCLATE 100 MG in DEXTROSE 5% (D5W) MINI-BAG PLU 100 ML IV ONE (16:51)
[2025-01-14] MEDS: INSULIN LISPRO (NovoLOG) PER UNIT SC SCH ×2 (16:51→18:46)
[2025-01-14] MEDS: MIDODRINE 5 MG TAB PO SCH (17:22)
[2025-01-14] MEDS: methylPREDNISolone 40MG 1ML VIAL IV SCH (17:22)
[2025-01-14] MEDS: EZETIMIBE 10MG TABLET (ZETIA) PO SCH (17:22)
[2025-01-14] MEDS: PANTOPRAZOLE 40MG TAB (PROTONIX) PO SCH (17:22)
[2025-01-14] MEDS: AMIODARONE 200 MG TAB (PACERONE) PO SCH (17:22)
[2025-01-14] MEDS: METOCLOPRAMIDE 5 MG TAB PO SCH (18:01)
[2025-01-14] MEDS: PERCOCET 5MG/325MG TAB PO PRN (18:06)
[2025-01-14] MEDS: METOPROLOL TARTRATE 100MG TAB PO SCH (18:06)
[2025-01-14] MEDS: IPRATROPIUM 0.5MG/ALBUTEROL 2.5MG INH SOL UD 3ML NEB SCH (18:58)
[2025-01-14 19:26] LABS: HEMOGLOBIN A1c 9.2 % (4.0-6.0)
[2025-01-14 20:24] VITALS: BP 116/71; TEMP 101.4; O2SAT 96
[2025-01-14] MEDS: MIRALAX *UNIT DOSE* 17GM PACKET PO SCH (21:00)
[2025-01-14] MEDS: SENNA 8.6 MG TAB (SENOKOT) PO SCH (21:00)
[2025-01-14 21:06] LABS: CK-MB VALUE MASS < 1.0 NG/ML (<3.6)
[2025-01-14 21:09] LABS: CPK CREATINE PHOSPHOKINASE 27 U/L (34-145)
[2025-01-14] MEDS: LanTUS (INSULIN GLARGINE INJ) 1 UNITS/0.01 ML SC SCH (21:12)
[2025-01-14] MEDS: ACETAMINOPHEN 500 MG TAB PO PRN (21:14)
[2025-01-14] MEDS: MIRTAZAPINE 15 MG TAB PO SCH (21:14)
[2025-01-14] MEDS: MAGNESIUM OXIDE 400MG TAB (MAG-OX) PO SCH (21:14)
[2025-01-14] MEDS: SIMVASTATIN 20 MG TAB PO SCH (21:14)
[2025-01-14] MEDS: guaiFENesin ER TABLET 600 MG TAB PO SCH (21:15)
[2025-01-14] MEDS: APIXABAN 5 MG TAB (ELIQUIS) PO SCH (21:15)
[2025-01-14 23:51] VITALS: BP 130/71; TEMP 100.2; O2SAT 95
[2025-01-15] VITALS (20 sets, daily range): BP systolic 102–129; BP diastolic 70–85; TEMP 97.5–100.8; O2SAT 88–99
[2025-01-15 05:23] LABS: HEMATOCRIT 42.6 % (36.0-47.0); MEAN CORPUSCULAR HEMOGLOBIN 24.4 pg (27.0-33.0); MEAN CORPUSCULAR HGB CONC 30.5 g/dl (32.0-36.5); MEAN CORPUSCULAR VOLUME 79.9 fl (80.0-96.0); PLATELET COUNT, AUTOMATED 439 10^3/uL (150-450); RED BLOOD COUNT 5.33 10^6/uL (4.00-5.40); WHITE BLOOD COUNT 17.5 10^3/uL (4.0-10.0)
[2025-01-15 05:45] LABS: CK-MB VALUE MASS < 1.0 NG/ML (<3.6)
[2025-01-15 05:47] LABS: CALCIUM LEVEL 10.2 MG/DL (8.3-10.6); CREATININE FOR GFR 1.73 MG/DL (0.55-1.30); GLOMERULAR FILTRATION RATE 32.4 (>45)
[2025-01-15 05:48] LABS: CPK CREATINE PHOSPHOKINASE 19 U/L (34-145); MB/CK RELATIVE INDEX 5.26 (< OR =4)
[2025-01-15] MEDS ORDERED: CALCIUM CHLORIDE 10% 1 GM in D5W 100 ML IV STA (06:50)
[2025-01-15] MEDS: HumuLIN R (REGULAR) INSULIN (NovoLIN R) **100U/ML** PER UNIT IV STA ×2 (07:06→09:44)
[2025-01-15] MEDS: DEXTROSE 50% 50ML SYRINGE IV PRN (07:06)
[2025-01-15] MEDS: SOD POLYSTYRENE SULFONATE SUSP 15GM 60ML UD PO STA (07:06)
[2025-01-15] MEDS: FUROSEMIDE injection 100 MG, VIAL 2 BAG 13MM ADAPTER 1 EACH in NS 100 ML IV SCH (08:08)
[2025-01-15 08:41] LABS: CALCIUM LEVEL 9.6 MG/DL (8.3-10.6); CREATININE FOR GFR 1.75 MG/DL (0.55-1.30); GLOMERULAR FILTRATION RATE 31.9 (>45); POTASSIUM SERUM 5.1 MMOL/L (3.5-5.1)
[2025-01-15] MEDS: DOXYCYCLINE HYCLATE 100MG TABLET PO SCH (08:54)
[2025-01-15] MEDS: BISACODYL 10MG SUPP PR SCH (08:55)
[2025-01-15] MEDS ORDERED: LEVALBUTEROL 1.25 MG 0.5ML CONCENTRATE NEB INH PRN (09:05)
[2025-01-15] MEDS: CHLOROTHIAZIDE 500MG VIAL IV SCH (09:05)
[2025-01-15 09:24] LABS: ABG BASE EXCESS 1.6 (-2.0-2.0); ABG HCO3 25.8 MMOL/L (22.0-26.0); ABG O2 SATURATION 95.8 % (95.0-99.0); ABG PARTIAL PRESSURE CO2 39.4 mmHg (35.0-45.0); ABG PARTIAL PRESSURE O2 83.5 mmHg (75.0-100.0); ABG STANDARD HCO3 25.8 MMOL/L. (22.0-26.0); ABG pH (ARTERIAL) 7.434 UNITS (7.350-7.450)
[2025-01-15] MEDS: SENOKOT S TAB PO SCH (09:44)
[2025-01-15] MEDS ORDERED: VANCOMYCIN HCL 1,000 MG, VIAL MATE ADAPTER 1 EACH in NS 250 ML IV SCH (11:00)
[2025-01-15] MEDS: AMIODARONE 200 MG TAB (PACERONE) PO ONE (11:14)
[2025-01-15] MEDS: cefTRIAXone SOD 2 GM in DEXTROSE 5% (D5W) ADV/MINI-BAG 50 ML IV SCH (11:14)
[2025-01-15] MEDS: PATIROMER SORBITEX CALCIUM 8.4 GM POWDER PACKET (VELTASSA) PO SCH (12:49)
[2025-01-15] MEDS ORDERED: CEFEPIME HCL 2 GM in DEXTROSE 5% (D5W) ADV/MINI-BAG 50 ML IV SCH (12:50)
[2025-01-15] MEDS: INSULIN LISPRO (NovoLOG) PER UNIT SC SCH (12:51)
[2025-01-15] MEDS: VANCOMYCIN HCL 1,000 MG, VIAL MATE ADAPTER 1 EACH in NS 250 ML IV ONE (12:51)
[2025-01-15 13:27] LABS: PROCALCITONIN 3.15 ng/ml
[2025-01-15 13:28] LABS: CK-MB VALUE MASS < 1.0 NG/ML (<3.6)
[2025-01-15 13:31] LABS: C REACTIVE PROTEIN QUANTITATIV 29.68 MG/DL (<1.0)
[2025-01-15 13:33] LABS: CPK CREATINE PHOSPHOKINASE 17 U/L (34-145); MB/CK RELATIVE INDEX 5.88 (< OR =4)
[2025-01-15] MEDS: LEVOTHYROXINE 25MCG TABLET (0.025MG) PO SCH (14:50)
[2025-01-15] MEDS: CEFEPIME HCL 1 GM in DEXTROSE 5% (D5W) ADV/MINI-BAG 50 ML IV SCH (14:50)
[2025-01-15] MEDS: AMIODARONE 200 MG TAB (PACERONE) PO SCH (16:34)
[2025-01-15] MEDS: VANCOMYCIN HCL 500 MG in DEXTROSE 5% (D5W) MINI-BAG PLU 100 ML IV SCH (21:15)
[2025-01-15] MEDS: LanTUS (INSULIN GLARGINE INJ) 1 UNITS/0.01 ML SC SCH (21:21)
[2025-01-16] VITALS (24 sets, daily range): BP systolic 92–116; BP diastolic 61–82; TEMP 96.9–98.2; O2SAT 90–99
[2025-01-16 07:27] LABS: BASO % 0.1 % (0.0-1.0); HEMATOCRIT 39.1 % (36.0-47.0); HEMATOCRIT 39.4 % (36.0-47.0); HEMOGLOBIN 12.1 g/dl (12.0-15.5); HEMOGLOBIN 12.2 g/dl (12.0-15.5); LYMPH % 5.3 % (24.0-44.0); MEAN CORPUSCULAR HEMOGLOBIN 23.7 pg (27.0-33.0); MEAN CORPUSCULAR HGB CONC 30.9 g/dl (32.0-36.5); MEAN CORPUSCULAR VOLUME 76.7 fl (80.0-96.0); MEAN CORPUSCULAR VOLUME 77.6 fl (80.0-96.0); MONO # 0.8 10^3/uL (0.0-0.8); MONO % 4.2 % (2.0-8.0); NEUTROPHILS # 16.2 10^3/uL (1.5-8.5); NEUTROPHILS % 89.4 % (36.0-66.0); PLATELET COUNT, AUTOMATED 357 10^3/uL (150-450); PLATELET COUNT, AUTOMATED 361 10^3/uL (150-450); RED BLOOD COUNT 5.04 10^6/uL (4.00-5.40); RED BLOOD COUNT 5.14 10^6/uL (4.00-5.40); WHITE BLOOD COUNT 17.7 10^3/uL (4.0-10.0); WHITE BLOOD COUNT 18.1 10^3/uL (4.0-10.0)
[2025-01-16 08:03] LABS: CALCIUM LEVEL 9.7 MG/DL (8.3-10.6); CREATININE FOR GFR 1.39 MG/DL (0.55-1.30); GLOMERULAR FILTRATION RATE 42.1 (>45)
[2025-01-16] MEDS: VANCOMYCIN HCL 750 MG, VIAL MATE ADAPTER 1 EACH in NS 250 ML IV SCH (09:23)
[2025-01-16] MEDS ORDERED: MIRALAX *UNIT DOSE* 17GM PACKET PO PRN (10:30)
[2025-01-16] MEDS: POTASSIUM CHLORIDE 10MEQ SR TABLET PO SCH (11:07)
[2025-01-16] MEDS: IPRATROPIUM 0.5MG/ALBUTEROL 2.5MG INH SOL UD 3ML NEB PRN (13:30)
[2025-01-16 13:36] LABS: CALCIUM LEVEL 9.1 MG/DL (8.3-10.6); CREATININE FOR GFR 1.28 MG/DL (0.55-1.30); GLOMERULAR FILTRATION RATE 46.5 (>45); POTASSIUM SERUM 3.2 MMOL/L (3.5-5.1)
[2025-01-16] MEDS: MUPIROCIN 2% OINT 22 GM TUBE TOP SCH (16:20)
[2025-01-17] VITALS (31 sets, daily range): BP systolic 100–119; BP diastolic 67–79; TEMP 97–98.9; O2SAT 88–96
[2025-01-17 05:47] LABS: BASO % 0.2 % (0.0-1.0); EOS % 0.1 % (0.0-3.0); HEMATOCRIT 41.1 % (36.0-47.0); HEMOGLOBIN 12.7 g/dl (12.0-15.5); LYMPH # 0.8 10^3/uL (1.5-5.0); MEAN CORPUSCULAR HEMOGLOBIN 23.9 pg (27.0-33.0); MEAN CORPUSCULAR HGB CONC 30.9 g/dl (32.0-36.5); MEAN CORPUSCULAR VOLUME 77.3 fl (80.0-96.0); MONO # 0.8 10^3/uL (0.0-0.8); MONO % 5.4 % (2.0-8.0); NEUTROPHILS # 13.8 10^3/uL (1.5-8.5); NEUTROPHILS % 87.8 % (36.0-66.0); PLATELET COUNT, AUTOMATED 363 10^3/uL (150-450); RED BLOOD COUNT 5.32 10^6/uL (4.00-5.40); WHITE BLOOD COUNT 15.7 10^3/uL (4.0-10.0)
[2025-01-17 06:18] LABS: CALCIUM LEVEL 9.6 MG/DL (8.3-10.6); CREATININE FOR GFR 1.34 MG/DL (0.55-1.30); POTASSIUM SERUM 4.6 MMOL/L (3.5-5.1)
[2025-01-17] MEDS: VANCOMYCIN HCL 500 MG in DEXTROSE 5% (D5W) MINI-BAG PLU 100 ML IV SCH (09:21)
[2025-01-17] MEDS: ONDANSETRON 4MG 2ML VIAL IV PRN (10:44)
[2025-01-18] VITALS (26 sets, daily range): BP systolic 85–116; BP diastolic 54–80; TEMP 97–98.3; O2SAT 87–99
[2025-01-18 04:15] LABS: BASO % 0.1 % (0.0-1.0); EOS # 0.1 10^3/uL (0.0-0.5); EOS % 0.4 % (0.0-3.0); HEMATOCRIT 38.9 % (36.0-47.0); HEMOGLOBIN 11.9 g/dl (12.0-15.5); LYMPH # 0.9 10^3/uL (1.5-5.0); LYMPH % 6.4 % (24.0-44.0); MEAN CORPUSCULAR HEMOGLOBIN 24.1 pg (27.0-33.0); MEAN CORPUSCULAR HGB CONC 30.6 g/dl (32.0-36.5); MEAN CORPUSCULAR VOLUME 78.7 fl (80.0-96.0); MONO # 0.8 10^3/uL (0.0-0.8); MONO % 5.4 % (2.0-8.0); NEUTROPHILS # 11.9 10^3/uL (1.5-8.5); NEUTROPHILS % 86.5 % (36.0-66.0); PLATELET COUNT, AUTOMATED 326 10^3/uL (150-450); RED BLOOD COUNT 4.94 10^6/uL (4.00-5.40); WHITE BLOOD COUNT 13.8 10^3/uL (4.0-10.0)
[2025-01-18 04:41] LABS: CALCIUM LEVEL 8.7 MG/DL (8.3-10.6); CREATININE FOR GFR 1.15 MG/DL (0.55-1.30); GLOMERULAR FILTRATION RATE 52.9 (>45); MAGNESIUM LEVEL 2.5 MG/DL (1.8-2.4); POTASSIUM SERUM 3.9 MMOL/L (3.5-5.1)
[2025-01-18 16:27] LABS: C REACTIVE PROTEIN QUANTITATIV 12.61 MG/DL (<1.0)
[2025-01-19] VITALS (13 sets, daily range): BP systolic 91–119; BP diastolic 54–87; TEMP 97.1–98.2; O2SAT 92–97
[2025-01-19 04:26] LABS: BASO % 0.2 % (0.0-1.0); EOS # 0.1 10^3/uL (0.0-0.5); HEMATOCRIT 37.3 % (36.0-47.0); HEMOGLOBIN 11.4 g/dl (12.0-15.5); LYMPH # 1.1 10^3/uL (1.5-5.0); MEAN CORPUSCULAR HEMOGLOBIN 23.8 pg (27.0-33.0); MEAN CORPUSCULAR HGB CONC 30.6 g/dl (32.0-36.5); MEAN CORPUSCULAR VOLUME 77.7 fl (80.0-96.0); MONO # 0.7 10^3/uL (0.0-0.8); MONO % 5.5 % (2.0-8.0); NEUTROPHILS # 9.7 10^3/uL (1.5-8.5); NEUTROPHILS % 82.3 % (36.0-66.0); PLATELET COUNT, AUTOMATED 310 10^3/uL (150-450); WHITE BLOOD COUNT 11.7 10^3/uL (4.0-10.0)
[2025-01-19 04:42] LABS: CALCIUM LEVEL 8.3 MG/DL (8.3-10.6); CREATININE FOR GFR 0.92 MG/DL (0.55-1.30); GLOMERULAR FILTRATION RATE 69.1 (>45); MAGNESIUM LEVEL 2.3 MG/DL (1.8-2.4)
[2025-01-19] MEDS: AMIODARONE 200 MG TAB (PACERONE) PO SCH (08:28)
[2025-01-19] MEDS ORDERED: VANCOMYCIN HCL 750 MG, VIAL MATE ADAPTER 1 EACH in NS 250 ML IV SCH (09:00)
[2025-01-19] MEDS: VANCOMYCIN HCL 500 MG in DEXTROSE 5% (D5W) MINI-BAG PLU 100 ML IV ONE (10:29)
[2025-01-19 21:08] LABS: MYCOPLASMA PNEUMONIAE IGG 1.83 (<=0.90)
[2025-01-20 04:29] VITALS: BP 108/74; TEMP 97; O2SAT 92
[2025-01-20 04:38] LABS: BASO % 0.2 % (0.0-1.0); EOS # 0.2 10^3/uL (0.0-0.5); EOS % 1.3 % (0.0-3.0); HEMATOCRIT 40.7 % (36.0-47.0); HEMOGLOBIN 12.5 g/dl (12.0-15.5); LYMPH # 1.2 10^3/uL (1.5-5.0); LYMPH % 9.3 % (24.0-44.0); MEAN CORPUSCULAR HEMOGLOBIN 24.3 pg (27.0-33.0); MEAN CORPUSCULAR HGB CONC 30.7 g/dl (32.0-36.5); MEAN CORPUSCULAR VOLUME 79.2 fl (80.0-96.0); MONO # 0.6 10^3/uL (0.0-0.8); MONO % 4.6 % (2.0-8.0); NEUTROPHILS # 10.6 10^3/uL (1.5-8.5); NEUTROPHILS % 82.1 % (36.0-66.0); PLATELET COUNT, AUTOMATED 351 10^3/uL (150-450); RED BLOOD COUNT 5.14 10^6/uL (4.00-5.40); WHITE BLOOD COUNT 12.9 10^3/uL (4.0-10.0)
[2025-01-20 05:01] LABS: CALCIUM LEVEL 8.4 MG/DL (8.3-10.6); CREATININE FOR GFR 0.88 MG/DL (0.55-1.30); GLOMERULAR FILTRATION RATE 72.9 (>45); MAGNESIUM LEVEL 2.4 MG/DL (1.8-2.4)
[2025-01-20 07:43] VITALS: BP 103/70; TEMP 98.3; O2SAT 93
[2025-01-20 09:06] VITALS: BP 103/70
[2025-01-20] MEDS: VANCOMYCIN HCL 1,000 MG, VIAL MATE ADAPTER 1 EACH in NS 250 ML IV SCH (09:08)
[2025-01-20] MEDS ORDERED: LEVO25TA5 PO (11:47)
[2025-01-20] MEDS ORDERED: FARX1TAB3 PO (11:58)
[2025-01-20 12:52] VITALS: BP 116/85; TEMP 98.2; O2SAT 96
== END 2025-01-20 13:52 | DRG 871 ==
LOC: M ED 09:35 → EDBD 09:35 → EEVIPCON 14:45 → M ED INP 14:45 → M PCU 15:46
PROVIDERS: ADMIT Family Medicine; ATTEND Student in an Organized Health Care Education/Training Program
DX: A41.02 Sepsis due to Methicillin resistant Staphylococcus aureus (principal); J18.9 Pneumonia, unspecified organism; I50.23 Acute on chronic systolic (congestive) heart failure; I42.0 Dilated cardiomyopathy; N39.0 Urinary tract infection, site not specified; N17.9 Acute kidney failure, unspecified; L97.901 Non-pressure chronic ulcer of unspecified part of unspecified lower leg limited to breakdown of skin; L97.902 Non-pressure chronic ulcer of unspecified part of unspecified lower leg with fat layer exposed; I13.0 Hypertensive heart and chronic kidney disease with heart failure and stage 1 through stage 4 chronic kidney disease, or unspecified chronic kidney disease; I48.91 Unspecified atrial fibrillation; E11.22 Type 2 diabetes mellitus with diabetic chronic kidney disease; L89.151 Pressure ulcer of sacral region, stage 1; E83.42 Hypomagnesemia; R33.9 Retention of urine, unspecified; R13.10 Dysphagia, unspecified; E11.65 Type 2 diabetes mellitus with hyperglycemia; E03.9 Hypothyroidism, unspecified; Z79.899 Other long term (current) drug therapy; Z79.4 Long term (current) use of insulin; I25.10 Atherosclerotic heart disease of native coronary artery without angina pectoris; Z98.49 Cataract extraction status, unspecified eye; E11.51 Type 2 diabetes mellitus with diabetic peripheral angiopathy without gangrene; I87.2 Venous insufficiency (chronic) (peripheral); Z66 Do not resuscitate; N18.9 Chronic kidney disease, unspecified; E87.5 Hyperkalemia; E87.6 Hypokalemia

== ENCOUNTER → 2025-01-25 | Outpatient (REF) ==
[~2025-01-25] MED LIST changes: +AMIO200T37 PO; +CERA453C2 TOP; +FLON1SPR NARES; +GUAI600T54 PO; +INSUH10VL SC; +JARD1TAB3 PO; +LANTINJ4 SC; +LEVO25TA5 PO; +LOPE1CAP5 PO; +LORA-622 PO; +MILKSUS3 PO; +MIRT-88 PO; +REGL5TAB2 PO; +SENN-186 PO; +SPIR-10 PO; +TORS20TA2 PO; +VENTAER INH; +[UNRECOGNIZED DRUG - CODE] IV
[2025-01-25 11:48] LABS: BASO # 0.1 10^3/uL (0.0-0.2); BASO % 0.3 % (0.0-1.0); EOS % 0.1 % (0.0-3.0); HEMATOCRIT 37.6 % (36.0-47.0); HEMOGLOBIN 11.1 g/dl (12.0-15.5); LYMPH # 0.5 10^3/uL (1.5-5.0); LYMPH % 2.4 % (24.0-44.0); MEAN CORPUSCULAR HGB CONC 29.5 g/dl (32.0-36.5); MEAN CORPUSCULAR VOLUME 81.4 fl (80.0-96.0); MONO # 1.1 10^3/uL (0.0-0.8); MONO % 4.9 % (2.0-8.0); NEUTROPHILS # 20.8 10^3/uL (1.5-8.5); NEUTROPHILS % 91.3 % (36.0-66.0); PLATELET COUNT, AUTOMATED 343 10^3/uL (150-450); RED BLOOD COUNT 4.62 10^6/uL (4.00-5.40); WHITE BLOOD COUNT 22.7 10^3/uL (4.0-10.0)
[2025-01-25 12:18] LABS: VANCOMYCIN LEVEL TROUGH 22.1 UG/ML (10.0-20.0)
[2025-01-25 12:40] LABS: ALBUMIN 2.3 G/DL (3.2-5.2); BILIRUBIN,TOTAL 0.5 MG/DL (0.3-1.2); CALCIUM LEVEL 8.2 MG/DL (8.3-10.6); CREATININE FOR GFR 1.29 MG/DL (0.55-1.30); GLOMERULAR FILTRATION RATE 46.1 (>45); POTASSIUM SERUM 5.4 MMOL/L (3.5-5.1); TOTAL PROTEIN 6.1 G/DL (5.7-8.2)
== END ==
LOC: SKLAB2 09:19
PROVIDERS: ATTEND Internal Medicine
DX: R78.81 Bacteremia (principal); B95.62 Methicillin resistant Staphylococcus aureus infection as the cause of diseases classified elsewhere; Z79.2 Long term (current) use of antibiotics

== ENCOUNTER → 2025-01-25 | Outpatient (REF) | LOC: SKLAB2 14:52 | PROVIDERS: ATTEND Internal Medicine | DX: D72.829 Elevated white blood cell count, unspecified (principal); I51.7 Cardiomegaly ==

== ENCOUNTER 2025-01-26 18:02 | Inpatient (IN) | payer MEDICARE, OTHER, MEDICAID ==
[~2025-01-26] VITALS: Ht 152.4 cm; Wt 54.5 kg
[~2025-01-26 18:02] MED LIST changes: -LOPE1CAP5 PO; +LORA-1164 PO; -LORA-622 PO; -TORS20TA2 PO; -[UNRECOGNIZED DRUG - CODE] IV
[2025-01-26] MEDS ORDERED: SPIR-10 PO (19:22)
[2025-01-26] MEDS ORDERED: TORS20TA2 PO (19:22)
[2025-01-26] MEDS ORDERED: LOPE1CAP5 PO (19:22)
[2025-01-26] MEDS ORDERED: [UNRECOGNIZED DRUG - CODE] IV (19:22)
[2025-01-26] MEDS ORDERED: HOME MED LIST COMPLETE! XX SCH (20:10)
[2025-01-26] MEDS: NS (Normal Saline) 0.9% 1,000 ML IV ONE (20:20)
[2025-01-26] MEDS ORDERED: METOCLOPRAMIDE 5 MG TAB PO SCH (22:00)
[2025-01-26] MEDS ORDERED: DEXTROSE 50% 50ML SYRINGE IV PRN (22:30)
[2025-01-26] MEDS ORDERED: GLUCOSE 4 GM CHEW PO PRN (22:30)
[2025-01-26] MEDS ORDERED: LOPERAMIDE 2 MG CAPLET PO PRN (22:30)
[2025-01-26] MEDS ORDERED: GLUCAGON INJ 1MG VIAL SC PRN (22:30)
[2025-01-26] MEDS ORDERED: MAALOX 30 ML SUSP *UDC PO PRN (22:40)
[2025-01-26] MEDS ORDERED: MOM 30ML SUSPENSION UDC PO PRN (22:40)
[2025-01-26] MEDS: APIXABAN 2.5 MG TAB PO SCH (23:42)
[2025-01-26] MEDS: METOPROLOL TARTRATE 100MG TAB PO SCH (23:42)
[2025-01-26] MEDS: MIRTAZAPINE 15 MG TAB PO SCH (23:42)
[2025-01-26] MEDS: SENNA 8.6 MG TAB (SENOKOT) PO SCH (23:42)
[2025-01-26] MEDS: predniSONE 20 MG TAB PO SCH (23:42)
[2025-01-26] MEDS: MIRALAX *UNIT DOSE* 17GM PACKET PO SCH (23:42)
[2025-01-26] MEDS: MAGNESIUM OXIDE 400MG TAB (MAG-OX) PO SCH (23:43)
[2025-01-26] MEDS: NS (Normal Saline) 0.9% 1,000 ML IV SCH (23:43)
[2025-01-27 00:24] VITALS: BP 131/78; TEMP 98.1; O2SAT 96
[2025-01-27] MEDS: LINEZOLID 600 MG in IV 1 EA IV SCH (02:48)
[2025-01-27 03:43] VITALS: BP 130/82; TEMP 97.7; O2SAT 99
[2025-01-27] MEDS: LEVOTHYROXINE 25MCG TABLET (0.025MG) PO SCH (05:31)
[2025-01-27 05:56] LABS: HEMATOCRIT 30.7 % (36.0-47.0); HEMOGLOBIN 9.5 g/dl (12.0-15.5); MEAN CORPUSCULAR HEMOGLOBIN 24.2 pg (27.0-33.0); MEAN CORPUSCULAR HGB CONC 30.9 g/dl (32.0-36.5); MEAN CORPUSCULAR VOLUME 78.1 fl (80.0-96.0); PLATELET COUNT, AUTOMATED 257 10^3/uL (150-450); RED BLOOD COUNT 3.93 10^6/uL (4.00-5.40); WHITE BLOOD COUNT 11.5 10^3/uL (4.0-10.0)
[2025-01-27 06:13] LABS: BILIRUBIN,TOTAL 0.3 MG/DL (0.3-1.2); CALCIUM LEVEL 7.8 MG/DL (8.3-10.6); CREATININE FOR GFR 1.59 MG/DL (0.55-1.30); GLOMERULAR FILTRATION RATE 35.8 (>45); POTASSIUM SERUM 5.1 MMOL/L (3.5-5.1); TOTAL PROTEIN 5.7 G/DL (5.7-8.2)
[2025-01-27 08:00] LABS: HEMOGLOBIN A1c 9.3 % (4.0-6.0)
[2025-01-27] MEDS: MIDODRINE 5 MG TAB PO SCH (08:00)
[2025-01-27] MEDS: FLUTICASONE PROP 0.05% NASAL SPRAY 16 GM (FLONASE) NARES SCH (08:08)
[2025-01-27] MEDS: INSULIN LISPRO (NovoLOG) PER UNIT SC SCH ×2 (08:10→20:52)
[2025-01-27] MEDS: DOCUSATE SODIUM 100MG CAPSULE PO SCH (08:12)
[2025-01-27] MEDS: SPIRONOLACTONE 12.5MG PER 1/2 TABLET PO SCH (08:12)
[2025-01-27] MEDS: AMIODARONE 200 MG TAB PO SCH (08:12)
[2025-01-27] MEDS: TORSEMIDE 20 MG TAB PO SCH (08:13)
[2025-01-27] MEDS: PANTOPRAZOLE 40MG TAB (PROTONIX) PO SCH (08:14)
[2025-01-27] MEDS: LORATADINE 10 MG TAB PO SCH (08:14)
[2025-01-27 08:17] VITALS: BP 135/88; TEMP 97.9; O2SAT 98
[2025-01-27] MEDS ORDERED: PILL CUTTER 1 EACH XX ONE (08:25)
[2025-01-27 12:07] VITALS: BP_SYST 137; BP_SYST 139; BP_DIAS 79; BP_DIAS 91; TEMP 97.5; O2SAT 99
[2025-01-27] MEDS ORDERED: VANCOMYCIN HCL 1,000 MG, VIAL MATE ADAPTER 1 EACH in NS 250 ML IV SCH (12:45)
[2025-01-27 13:15] LABS: VANCOMYCIN RANDOM 21.1 UG/ML
[2025-01-27] MEDS ORDERED: VANCOMYCIN INTERMITTENT/PULSE DOSING BY CLINICAL PHARMACIST PER DOSING PROTOCOL XX SCH (13:40)
[2025-01-27 16:14] VITALS: BP 121/80; TEMP 97.7; O2SAT 93
[2025-01-27 20:00] VITALS: BP 127/85; TEMP 96.8; O2SAT 98
[2025-01-27 20:26] LABS: CALCIUM LEVEL 7.5 MG/DL (8.3-10.6); CREATININE FOR GFR 1.5 MG/DL (0.55-1.30); GLOMERULAR FILTRATION RATE 38.4 (>45); POTASSIUM SERUM 4.9 MMOL/L (3.5-5.1)
[2025-01-27] MEDS: ACETAMINOPHEN 325 MG TAB PO PRN (20:53)
[2025-01-28] VITALS (7 sets, daily range): BP systolic 131–143; BP diastolic 86–95; TEMP 96.4–98.2; O2SAT 94–99
[2025-01-28 00:48] LABS: CALCIUM LEVEL 7.7 MG/DL (8.3-10.6); CREATININE FOR GFR 1.43 MG/DL (0.55-1.30); GLOMERULAR FILTRATION RATE 40.7 (>45); POTASSIUM SERUM 4.7 MMOL/L (3.5-5.1)
[2025-01-28] MEDS: INSULIN LISPRO (NovoLOG) PER UNIT SC STA (01:13)
[2025-01-28] MEDS: METOCLOPRAMIDE 5 MG TAB PO PRN (06:16)
[2025-01-28 06:34] LABS: HEMATOCRIT 35.8 % (36.0-47.0); HEMOGLOBIN 10.6 g/dl (12.0-15.5); MEAN CORPUSCULAR HEMOGLOBIN 24.5 pg (27.0-33.0); MEAN CORPUSCULAR HGB CONC 29.6 g/dl (32.0-36.5); MEAN CORPUSCULAR VOLUME 82.7 fl (80.0-96.0); PLATELET COUNT, AUTOMATED 271 10^3/uL (150-450); RED BLOOD COUNT 4.33 10^6/uL (4.00-5.40); WHITE BLOOD COUNT 9.4 10^3/uL (4.0-10.0)
[2025-01-28 07:23] LABS: ALBUMIN 2.2 G/DL (3.2-5.2); BILIRUBIN,TOTAL 0.2 MG/DL (0.3-1.2); CALCIUM LEVEL 8.2 MG/DL (8.3-10.6); CREATININE FOR GFR 1.28 MG/DL (0.55-1.30); GLOMERULAR FILTRATION RATE 46.5 (>45); POTASSIUM SERUM 4.6 MMOL/L (3.5-5.1)
[2025-01-28] MEDS ORDERED: NS (Normal Saline) 0.9% 1,000 ML IV SCH (09:00)
[2025-01-28 09:18] LABS: HEMOGLOBIN A1c 9.1 % (4.0-6.0)
[2025-01-28] MEDS: SODIUM BICARBONATE 325 MG TAB PO SCH (10:38)
[2025-01-28] MEDS: DOXYCYCLINE HYCLATE 100MG TABLET PO SCH (12:36)
[2025-01-28] MEDS: TORSEMIDE 20 MG TAB PO SCH (12:36)
[2025-01-29] VITALS: BP 142/97; TEMP 97.9; O2SAT 97
[2025-01-29] MEDS: diphenhydrAMINE 50MG/ML VIAL IM ONE
[2025-01-29 03:54] VITALS: BP 142/96; TEMP 97.7; O2SAT 97
[2025-01-29 05:44] LABS: HEMATOCRIT 33.2 % (36.0-47.0); HEMOGLOBIN 10.3 g/dl (12.0-15.5); MEAN CORPUSCULAR HEMOGLOBIN 24.3 pg (27.0-33.0); MEAN CORPUSCULAR VOLUME 78.3 fl (80.0-96.0); PLATELET COUNT, AUTOMATED 306 10^3/uL (150-450); RED BLOOD COUNT 4.24 10^6/uL (4.00-5.40); WHITE BLOOD COUNT 8.5 10^3/uL (4.0-10.0)
[2025-01-29 06:08] LABS: PERCENT SATURATION 5.7 % (13.2-45.0)
[2025-01-29 06:11] LABS: FERRITIN 69.3 NG/ML (7.3-270.7)
[2025-01-29 06:19] LABS: ALBUMIN 2.3 G/DL (3.2-5.2); BILIRUBIN,TOTAL 0.4 MG/DL (0.3-1.2); CALCIUM LEVEL 8.7 MG/DL (8.3-10.6); CREATININE FOR GFR 1.26 MG/DL (0.55-1.30); GLOMERULAR FILTRATION RATE 47.4 (>45); POTASSIUM SERUM 4.3 MMOL/L (3.5-5.1)
[2025-01-29 08:00] VITALS: BP 138/102; TEMP 97.7; O2SAT 91
[2025-01-29] MEDS ORDERED: DOXY100T PO (08:06)
[2025-01-29] MEDS: INSULIN LISPRO (NovoLOG) PER UNIT SC STA (08:46)
[2025-01-29 08:47] VITALS: BP 138/102
[2025-01-29] MEDS ORDERED: TORSEMIDE 10 MG TABLET PO SCH (09:00)
[2025-01-29 12:00] VITALS: BP 136/94; TEMP 97.5; O2SAT 98
[2025-01-29] MEDS: FERRIC CARBOXYMALTOSE INJ 750 MG, VIAL MATE ADAPTER 1 EACH in NS 100 ML IV ONE (12:14)
[2025-01-29] MEDS: INSULIN LISPRO (NovoLOG) PER UNIT SC SCH (12:17)
== END 2025-01-29 13:06 | DRG 871 ==
LOC: EDBD 18:02 → M ED 18:02 → M ED INP 22:36 → M MSPAV 01-27 00:20
PROVIDERS: ADMIT Student in an Organized Health Care Education/Training Program; ATTEND General Practice
DX: A41.02 Sepsis due to Methicillin resistant Staphylococcus aureus (principal); J15.212 Pneumonia due to Methicillin resistant Staphylococcus aureus; N17.9 Acute kidney failure, unspecified; E87.1 Hypo-osmolality and hyponatremia; I50.22 Chronic systolic (congestive) heart failure; I11.0 Hypertensive heart disease with heart failure; L89.152 Pressure ulcer of sacral region, stage 2; E11.22 Type 2 diabetes mellitus with diabetic chronic kidney disease; E03.9 Hypothyroidism, unspecified; R13.10 Dysphagia, unspecified; I89.0 Lymphedema, not elsewhere classified; I48.91 Unspecified atrial fibrillation; R33.9 Retention of urine, unspecified; Z79.899 Other long term (current) drug therapy; Z79.4 Long term (current) use of insulin; Z79.890 Hormone replacement therapy; E78.5 Hyperlipidemia, unspecified

== ENCOUNTER → 2025-01-26 | Outpatient (REF) ==
[2025-01-26 16:19] LABS: BASO % 0.2 % (0.0-1.0); EOS # 0.1 10^3/uL (0.0-0.5); EOS % 0.7 % (0.0-3.0); HEMATOCRIT 31.3 % (36.0-47.0); HEMOGLOBIN 9.6 g/dl (12.0-15.5); LYMPH # 1.1 10^3/uL (1.5-5.0); LYMPH % 7.1 % (24.0-44.0); MEAN CORPUSCULAR HEMOGLOBIN 24.2 pg (27.0-33.0); MEAN CORPUSCULAR HGB CONC 30.7 g/dl (32.0-36.5); MONO # 1.2 10^3/uL (0.0-0.8); MONO % 8.1 % (2.0-8.0); NEUTROPHILS # 12.5 10^3/uL (1.5-8.5); NEUTROPHILS % 83.1 % (36.0-66.0); PLATELET COUNT, AUTOMATED 303 10^3/uL (150-450); RED BLOOD COUNT 3.96 10^6/uL (4.00-5.40)
[2025-01-26 16:31] LABS: BILIRUBIN,TOTAL 0.3 MG/DL (0.3-1.2); CALCIUM LEVEL 7.6 MG/DL (8.3-10.6); CREATININE FOR GFR 1.72 MG/DL (0.55-1.30); GLOMERULAR FILTRATION RATE 32.6 (>45); POTASSIUM SERUM 4.8 MMOL/L (3.5-5.1); TOTAL PROTEIN 5.6 G/DL (5.7-8.2)
== END ==
LOC: SKLAB2 09:00
PROVIDERS: ATTEND Internal Medicine
DX: I50.9 Heart failure, unspecified (principal); D72.829 Elevated white blood cell count, unspecified; R19.7 Diarrhea, unspecified

== ENCOUNTER → 2025-03-22 | Outpatient (REF) | payer MEDICARE, OTHER, MEDICAID ==
[~2025-03-22] MED LIST changes: -AMIO200T49 PO; +AMIO200T54 PO; +DOXY100T PO; +LOPE1CAP5 PO; +TORS20TA2 PO; +[UNRECOGNIZED DRUG - CODE] IV
[2025-03-22 14:18] LABS: CALCIUM LEVEL 8.7 MG/DL (8.3-10.6); CARBON DIOXIDE LEVEL 31.0 MMOL/L (20-31); CHLORIDE LEVEL 101.0 MMOL/L (98-107); CREATININE FOR GFR 1.06 MG/DL (0.55-1.30); GLOMERULAR FILTRATION RATE 58.3 (>45); POTASSIUM SERUM 4.0 MMOL/L (3.5-5.1); SODIUM LEVEL 143.0 MMOL/L (136-145)
== END ==
LOC: SKLAB2 09:54
PROVIDERS: ATTEND Internal Medicine
DX: I50.9 Heart failure, unspecified (principal)

== ENCOUNTER → 2025-03-30 | Outpatient (REF) | payer MEDICARE, OTHER, MEDICAID | LOC: SKLAB2 10:11 | PROVIDERS: ATTEND Internal Medicine | DX: E03.9 Hypothyroidism, unspecified (principal) ==

== ENCOUNTER → 2025-04-15 | Outpatient (REF) | payer MEDICARE, OTHER, MEDICAID ==
[~2025-04-15] MED LIST changes: +SENN-225 PO; -SENO8.6T5 PO
[2025-04-15 08:40] LABS: BASO # 0.0 10^3/uL (0.0-0.2); BASO % 0.5 % (0.0-1.0); EOS # 0.2 10^3/uL (0.0-0.5); EOS % 2.7 % (0.0-3.0); LYMPH # 0.9 10^3/uL (1.5-5.0); LYMPH % 15.4 % (24.0-44.0); MONO # 0.4 10^3/uL (0.0-0.8); MONO % 6.3 % (2.0-8.0); NEUTROPHILS # 4.4 10^3/uL (1.5-8.5); NEUTROPHILS % 74.8 % (36.0-66.0); PLATELET COUNT, AUTOMATED 232 10^3/uL (150-450)
[2025-04-15 09:09] LABS: CALCIUM LEVEL 8.9 MG/DL (8.3-10.6); CARBON DIOXIDE LEVEL 31.0 MMOL/L (20-31); CHLORIDE LEVEL 100.0 MMOL/L (98-107); CREATININE FOR GFR 1.17 MG/DL (0.55-1.30); GLOMERULAR FILTRATION RATE 51.8 (>45); MAGNESIUM LEVEL 2.6 MG/DL (1.8-2.4); PHOSPHORUS LEVEL 5.9 MG/DL (2.4-5.1); POTASSIUM SERUM 4.0 MMOL/L (3.5-5.1); SODIUM LEVEL 146.0 MMOL/L (136-145)
== END ==
LOC: SKLAB2 07:00
PROVIDERS: ATTEND Internal Medicine
DX: N18.9 Chronic kidney disease, unspecified (principal)

== ENCOUNTER → 2025-04-15 | Outpatient (REF) | payer MEDICARE, OTHER, MEDICAID ==
[2025-04-15 16:06] LABS: APPEARANCE, URINE CLEAR (CLEAR); BACTERIA, URINE AUTO NEGATIVE (NEGATIVE); BILIRUBIN, URINE AUTO NEGATIVE (NEGATIVE); BLOOD, URINE BLOOD 1+ (NEGATIVE); GLUCOSE, URINE (UA) AUTO 3+ mg/dL (NEGATIVE); KETONE, URINE AUTO NEGATIVE (NEGATIVE); LEUKOCYTE ESTERASE, URINE AUTO NEGATIVE (NEGATIVE); NITRITE, URINE AUTO NEGATIVE (NEGATIVE); PROTEIN, URINE AUTO NEGATIVE (NEGATIVE); RBC, URINE AUTO 8 /HPF (0-3); SPECIFIC GRAVITY URINE AUTO 1.007 (1.002-1.035); SQUAMOUS EPITHELIAL CELL UR AU 1 /HPF (0-6); UROBILINOGEN, URINE AUTO 0.2 mg/dL (0.0-2.0); WBC, URINE AUTO 2 /HPF (0-3)
== END ==
LOC: M SMT 15:00
PROVIDERS: ATTEND Urology
DX: Z87.440 Personal history of urinary (tract) infections (principal); Z79.899 Other long term (current) drug therapy

== ENCOUNTER → 2025-05-12 | Outpatient (CLI) | payer MEDICARE, OTHER | LOC: M RAD 11:37 | PROVIDERS: ATTEND Urology | DX: N28.9 Disorder of kidney and ureter, unspecified (principal) ==

== ENCOUNTER → 2025-06-10 | Outpatient (CLI) | payer MEDICARE, OTHER | LOC: M RAD 13:08 | PROVIDERS: ATTEND Physician Assistant | DX: I87.313 Chronic venous hypertension (idiopathic) with ulcer of bilateral lower extremity (principal); L97.912 Non-pressure chronic ulcer of unspecified part of right lower leg with fat layer exposed; L97.922 Non-pressure chronic ulcer of unspecified part of left lower leg with fat layer exposed ==

== ENCOUNTER → 2025-07-12 | Outpatient (REF) | payer MEDICARE, OTHER ==
[2025-07-12 16:52] LABS: BASO # 0.0 10^3/uL (0.0-0.2); BASO % 0.4 % (0.0-1.0); EOS # 0.1 10^3/uL (0.0-0.5); EOS % 1.4 % (0.0-3.0); LYMPH # 0.8 10^3/uL (1.5-5.0); LYMPH % 11.0 % (24.0-44.0); MONO # 0.3 10^3/uL (0.0-0.8); MONO % 4.0 % (2.0-8.0); NEUTROPHILS # 5.9 10^3/uL (1.5-8.5); NEUTROPHILS % 82.6 % (36.0-66.0); PLATELET COUNT, AUTOMATED 174 10^3/uL (150-450)
[2025-07-12 17:07] LABS: INR 1.2
[2025-07-12 17:08] LABS: ALT/SGPT 37.0 U/L (7.0-40); AST/SGOT 47.0 U/L (<34); CALCIUM LEVEL 8.3 MG/DL (8.3-10.6); CARBON DIOXIDE LEVEL 31.0 MMOL/L (20-31); CHLORIDE LEVEL 101.0 MMOL/L (98-107); CHOLESTEROL LEVEL 186.0 MG/DL (<200); CHOLESTEROL RISK RATIO 3.06 (<5); CREATININE FOR GFR 1.22 MG/DL (0.55-1.30); GLOMERULAR FILTRATION RATE 48.9 (>45); LDL CHOLESTEROL 92.9 MG/DL (<100); NON-HDL-C 125.3 MG/DL; POTASSIUM SERUM 4.0 MMOL/L (3.5-5.1); SODIUM LEVEL 142.0 MMOL/L (136-145); TRIGLYCERIDES LEVEL 162.0 MG/DL (<150)
[2025-07-12 17:10] LABS: FREE T4 1.79 NG/DL (0.89-1.76)
[2025-07-12 17:52] LABS: ESTIMATED AVERAGE GLUCOSE 151.0 MG/DL (60-110)
[2025-07-12 18:47] LABS: CREATININE, URINE 42.1 MG/DL; MALB URINE SIEMENS 11.0 MG/L; MAU/CREAT RATIO 26.1 MCG/MG (0.0-30.0)
== END ==
LOC: M SFHCLERA 14:02
PROVIDERS: ATTEND Internal Medicine
DX: E11.65 Type 2 diabetes mellitus with hyperglycemia (principal); E03.8 Other specified hypothyroidism; I48.0 Paroxysmal atrial fibrillation